=== PATIENT | male | born 1975 | race Caucasian/White ===

== ENCOUNTER 2016-12-31 15:11 | Emergency (ER) | payer MEDICARE ==
[~2016-12-31] VITALS: Ht 188 cm; Wt 113.4 kg
[~2016-12-31 15:11] MED LIST: AMOXICILLIN 50500 MG PO; ATIVAN1 MG PO; AURALGAN OT10 ML/BOT OT; BACTRIM DS 8001 TA1 PO; BACTRIM DS 8001 TAB PO; BENTYL20 MG PO; CIPRO 500MG TA500 MG PO; DILAUDID2 MG PO; FLOMAX 0.4MG C0.4 MG PO; FLOMAX0.4 MG PO; HYDROCODONE/ACE1 TA5 PO; IBUPROFEN200 MG PO; IBUPROFEN800 MG PO; KEFLEX 500MG.500 MG PO; KLONOPIN1 MG PO; LORTAB 5/500 501 TAB PO; LORTAB 500 MG-11 TAB PO; LORTAB 500 MG-71 TAB PO; MOTRIN800 MG PO; NORCO 325 MG-51 TAB PO; OCUFLOX 0.3% OP.5 ML OP; PEN-VK500 MG PO; PERCOCET 5/3251 EACH PO; PHENERGAN 25MG.25 M1 PO; PREDNISONE 20MG20 MG PO; PROZAC 20MG CAP20 MG PO; PYRIDIUM 200MG200 MG PO; RISPERDAL 1 MG T1 MG PO; SEPTRA DS 800 M1 TAB PO; TESSALON PERLE100 MG PO; TYLENOL W/CODEI1 TA2 PO; VIBRAMYCIN 100100 MG PO; VICODIN 5/500 T1 TAB PO; VICODIN 7.5/501 EACH PO; ZITHROMAX Z PA250 MG PO
[2016-12-31] MEDS ORDERED: FLONASE 50 MCG16 GM (16:25)
[2016-12-31] MEDS ORDERED: CLARITIN 10MG T10 MG PO (16:25)
[2016-12-31] MEDS ORDERED: MEDROL 4MG. DOSE4 MG PO (16:25)
--- NOTE | 2016-12-31 16:27 | Urgent Treatment Center Report ---
History of Present Issue Date/Time Seen by Provider 12/31/16 0855 Visit Reason Pt arrived:Walked Presenting Problem:PT STATES SORE THROAT THAT BEGAN YESTERDAY. STATES THIS MORNING THE PAIN WAS WORSE. STATES PAINFUL SWALLOWING AND PAIN TO LEFT SIDE OF NECK AND LEFT EAR. Location if Accident: Onset of symptoms date/time:12/30/16/ or onset unknown for:MEDICAL HX UNKNOWN Have you (or family members/close friends) recently traveled outside the [place]? N If Yes, where/when: Have you had exposure to infectious disease within the past month? TB? Other? Specify: c/o sore throat and ear pain on left side. Started w/ scratchy throat yesterday but ear pain this morning. Worse w/ chewing. Described as constant ache with intermittent pressure, popping, crackling. Slightly decreased hearing. No drainage from ear. Pain radiates from ear down neck and then left side of throat still feels scratchy. Hasn't taken or tried anything for symptoms. no one else w / similiar symptoms. Source patient Exam Limitations no limitations ALLERGIES Coded Allergies: butorphanol (07/03/16) haloperidol (From HALDOL) (07/03/16) hydroxyzine (07/03/16) ketorolac (07/03/16) oxycodone (07/03/16) Home Medications Active Scripts HYDROCODONE/ACETAMINOPHEN ([place] 5-325 Tablet) 1 TAB PO Q6HP PRN pain #10 TAB Prov: 07/03/16 Reported Medications Fluoxetine Hcl (Prozac 20MG Capsule(Generic)) 40 MG PO DAILY Clonazepam (Klonopin 1MG) 1 MG PO TID History Medical History General CAD? No Angina: No [place]: No Hypertension? No Hyperlipidemia? No CHF? No DVT? No PE? No COPD? No Asthma? No Anemia? No GERD? No Gastric ulcers? No GI Bleed? No Hernia? Yes Thyroid Problems? No Hypothyroidism? No CVA? No Seizures? No Diabetes? No Insulin Dependent: No Insulin Pump: No Home FSBS? No Renal Insuffiency? No UTI? Yes Stones? Yes BPH? Yes GB Disease: No Nephritic Syndrome? No Asplenia? No Hepatitis? No Sickle Cell Disease? No Arthritis? No Migraines? No Cataracts? No Glaucoma? No MRSA? No HIV? No TB? No Anxiety? Yes Depression? Yes Cancer? No More? Yes Additional hx: 36 KIDNEY STONES REMOVED Immunization HX DT/Tetanus 1-4 Years Ago Flu NEVER Pneumonia NEVER Surgical Hx Previous Surgery?Y KIDNEY STONES-MULTIPLE Family History Family HX Diabetes Yes CAD Yes Hypertension Yes Hyperlipidemia Yes Cancer Yes TB No Social History Smoking Hx Smoker: Never Smoker Tobacco: No Alcohol Alcohol: No Review of Systems All Other Systems Reviewed and Negative Constitutional denies chills, denies fever, denies malaise, denies weakness Eyes denies drainage ENT see HPI. denies: nose discharge, nose congestion, throat swelling. Respiratory denies cough Skin denies rash Psychiatric/Neurological denies headache, denies other (dizziness) Physical Exam Vital Signs Vital Signs Date Time Temp Pulse Resp B/P Pulse O2 O2 Flow FiO2 Ox Delivery Rate 12/31 1543 98.3 89 20 140/95 98 General Appearance no apparent distress Eye Exam - bilateral eye normal exam Ear, Nose, Throat clear PND and mild cobblestoning, nares normal, bilateral EAC normal and both TMs bulging slightly, intact, pearly gaspar, clear fluid Neck supple, full range of motion, tender left side consistent w/ location of eustachian tube, no lymphadenopathy Respiratory Status No: respiratory distress (no cough). Lung Sounds anterior: lungs clear. posterior: lungs clear. bilateral: lungs clear. Cardiovascular no peripheral edema Neurologic alert Skin normal color, warm/dry Lymphatic no adenopathy (cervical) Medical Decision Making LABS/Meds/Orders Pt receiving controlled substance in ED? No Results/Orders Laboratory Tests 12/31/16 1549: Group A Strep Screen NOT DETECTED Orders Procedure Date/time Status [facility] STREP SCREEN 12/31 1549 Complete Departure Departure Time of Disposition 1622 Disposition [place] Home or Self Care(routine) Clinical Impression Primary Impression: Eustachian tube dysfunction Qualifiers: Laterality: left Qualified Code: H69.82 - Other specified disorders of Eustachian tube, left ear Condition STABLE Referrals Surya FRANCIS,Catracho (Family) Follow up IMMEDIATELY for new or worsening symptoms OR no noticeable improvement over the next 48-72 hours. 911 for difficulty breathing. Patient Instructions DI for Eustachian Tube Dysfunction-Adult, Methylprednisolone Oral Additional Instructions * sleep elevated * flonase 2 sprays each nostril daily but may take 2-3 days to notice improvement with it. * start an antihistamine like claritin, celso, zyrtec * Start steroid today. Helps with inflammation therefore, should help improve your symptoms. Follow directions on package. Rvwd side effects. Pt reports they have taken them before. Discharge Counseling Counseled pt/family regarding diagnosis, test results, medications/RX, home care, follow up needs Prescriptions Current Visit Scripts Fluticasone Propionate (Flonase 50 Mcg Nasal [place]) 2 SPRAY NA DAILY #1 BOT Loratadine (Claritin 10MG) 10 MG PO DAILY #1 TAB OTC medication Methylprednisolone (Medrol Dose Mike) 4 MG PO UD #1 MIKE TAKE DIRECTED ON PACKAGING at 1637
--- NOTE | 2016-12-31 16:27 | Urgent Treatment Center Report ---
History of Present Issue Date/Time Seen by Provider 12/31/16 2095 Visit Reason Pt arrived:Walked Presenting Problem:PT STATES SORE THROAT THAT BEGAN YESTERDAY. STATES THIS MORNING THE PAIN WAS WORSE. STATES PAINFUL SWALLOWING AND PAIN TO LEFT SIDE OF NECK AND LEFT EAR. Location if Accident: Onset of symptoms date/time:12/30/16/ or onset unknown for:MEDICAL HX UNKNOWN Have you (or family members/close friends) recently traveled outside the [place]? N If Yes, where/when: Have you had exposure to infectious disease within the past month? TB? Other? Specify: c/o sore throat and ear pain on left side. Started w/ scratchy throat yesterday but ear pain this morning. Worse w/ chewing. Described as constant ache with intermittent pressure, popping, crackling. Slightly decreased hearing. No drainage from ear. Pain radiates from ear down neck and then left side of throat still feels scratchy. Hasn't taken or tried anything for symptoms. no one else w / similiar symptoms. Source patient Exam Limitations no limitations ALLERGIES Coded Allergies: butorphanol (07/03/16) haloperidol (From HALDOL) (07/03/16) hydroxyzine (07/03/16) ketorolac (07/03/16) oxycodone (07/03/16) Home Medications Active Scripts HYDROCODONE/ACETAMINOPHEN ([place] 5-325 Tablet) 1 TAB PO Q6HP PRN pain #10 TAB Prov: 07/03/16 Reported Medications Fluoxetine Hcl (Prozac 20MG Capsule(Generic)) 40 MG PO DAILY Clonazepam (Klonopin 1MG) 1 MG PO TID History Medical History General CAD? No Angina: No [place]: No Hypertension? No Hyperlipidemia? No CHF? No DVT? No PE? No COPD? No Asthma? No Anemia? No GERD? No Gastric ulcers? No GI Bleed? No Hernia? Yes Thyroid Problems? No Hypothyroidism? No CVA? No Seizures? No Diabetes? No Insulin Dependent: No Insulin Pump: No Home FSBS? No Renal Insuffiency? No UTI? Yes Stones? Yes BPH? Yes GB Disease: No Nephritic Syndrome? No Asplenia? No Hepatitis? No Sickle Cell Disease? No Arthritis? No Migraines? No Cataracts? No Glaucoma? No MRSA? No HIV? No TB? No Anxiety? Yes Depression? Yes Cancer? No More? Yes Additional hx: 36 KIDNEY STONES REMOVED Immunization HX DT/Tetanus 1-4 Years Ago Flu NEVER Pneumonia NEVER Surgical Hx Previous Surgery?Y KIDNEY STONES-MULTIPLE Family History Family HX Diabetes Yes CAD Yes Hypertension Yes Hyperlipidemia Yes Cancer Yes TB No Social History Smoking Hx Smoker: Never Smoker Tobacco: No Alcohol Alcohol: No Review of Systems All Other Systems Reviewed and Negative Constitutional denies chills, denies fever, denies malaise, denies weakness Eyes denies drainage ENT see HPI. denies: nose discharge, nose congestion, throat swelling. Respiratory denies cough Skin denies rash Psychiatric/Neurological denies headache, denies other (dizziness) Physical Exam Vital Signs Vital Signs Date Time Temp Pulse Resp B/P Pulse O2 O2 Flow FiO2 Ox Delivery Rate 12/31 1543 98.3 89 20 140/95 98 General Appearance no apparent distress Eye Exam - bilateral eye normal exam Ear, Nose, Throat clear PND and mild cobblestoning, nares normal, bilateral EAC normal and both TMs bulging slightly, intact, pearly gaspar, clear fluid Neck supple, full range of motion, tender left side consistent w/ location of eustachian tube, no lymphadenopathy Respiratory Status No: respiratory distress (no cough). Lung Sounds anterior: lungs clear. posterior: lungs clear. bilateral: lungs clear. Cardiovascular no peripheral edema Neurologic alert Skin normal color, warm/dry Lymphatic no adenopathy (cervical) Medical Decision Making LABS/Meds/Orders Pt receiving controlled substance in ED? No Results/Orders Laboratory Tests 12/31/16 1549: Group A Strep Screen NOT DETECTED Orders Procedure Date/time Status [facility] STREP SCREEN 12/31 1549 Complete Departure Departure Time of Disposition 1622 Disposition [place] Home or Self Care(routine) Clinical Impression Primary Impression: Eustachian tube dysfunction Qualifiers: Laterality: left Qualified Code: H69.82 - Other specified disorders of Eustachian tube, left ear Condition STABLE Referrals Surya FRANCIS,Catracho (Family) Follow up IMMEDIATELY for new or worsening symptoms OR no noticeable improvement over the next 48-72 hours. 911 for difficulty breathing. Patient Instructions DI for Eustachian Tube Dysfunction-Adult, Methylprednisolone Oral Additional Instructions * sleep elevated * flonase 2 sprays each nostril daily but may take 2-3 days to notice improvement with it. * start an antihistamine like claritin, celso, zyrtec * Start steroid today. Helps with inflammation therefore, should help improve your symptoms. Follow directions on package. Rvwd side effects. Pt reports they have taken them before. Discharge Counseling Counseled pt/family regarding diagnosis, test results, medications/RX, home care, follow up needs Prescriptions Current Visit Scripts Fluticasone Propionate (Flonase 50 Mcg Nasal [place]) 2 SPRAY NA DAILY #1 BOT Loratadine (Claritin 10MG) 10 MG PO DAILY #1 TAB OTC medication Methylprednisolone (Medrol Dose Mike) 4 MG PO UD #1 MIKE TAKE DIRECTED ON PACKAGING at 1630
[2016-12-31 16:29] VITALS: BP 140/95
== END 2016-12-31 16:29 | disposition home or self-care (01) ==
LOC: UTC 15:11
DX: H69.82 Other specified disorders of Eustachian tube, left ear (principal)

== ENCOUNTER 2017-01-02 06:19 | Emergency (ER) | payer MEDICARE ==
[~2017-01-02] VITALS: Ht 188 cm; Wt 113.4 kg
[~2017-01-02 06:19] MED LIST changes: +CLARITIN 10MG T10 MG PO; +FLONASE 50 MCG16 GM; +MEDROL 4MG. DOSE4 MG PO
--- NOTE | 2017-01-02 06:32 | Emergency Room Report ---
History of Present Illness Time Seen by 0620 Presenting Problem in Triage Pt arrived:Walked Presenting Problem:PT C/O LEFT EAR PAIN X 3 DAYS. PT RPTS HE WAS SEEN IN THE [facility] ON TUESDAY, IS TAKING MEDICATIONS PRESCRIBED BUT PAIN IS NOT SUBSIDING. 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 N Clinical Suspician of Infection? N Mental Status: 1 - Regular (Normal Baseline) Sepsis Risk:Possible Sepsis Risk Have you (or family members/close friends) recently traveled outside the [place]? N If Yes, where/when: Have you had exposure to infectious disease within the past month? N TB? Other? Specify: Comment Patient complains of left ear discomfort. It started 3 days ago with a popping sensation in his left ear which increased with swallowing. He was seen in the urgent treatment center and diagnosed with eustachian tube dysfunction. He was started on steroids and antihistamines. He says now he has a throbbing pain in his ear. He has had a low-grade fever of about 100 degrees. He has some slight rhinorrhea. Previous history of occasional ear infections. ALLERGIES Coded Allergies: butorphanol (07/03/16) haloperidol (From HALDOL) (07/03/16) hydroxyzine (07/03/16) ketorolac (07/03/16) oxycodone (07/03/16) Home Medications Active Scripts HYDROCODONE/ACETAMINOPHEN ([place] 5-325 Tablet) 1 TAB PO Q6HP PRN pain #10 TAB Prov: 07/03/16 Fluticasone Propionate (Flonase 50 Mcg Nasal [place]) 2 SPRAY NA DAILY #1 BOT Prov: 12/31/16 Loratadine (Claritin 10MG) 10 MG PO DAILY #1 TAB Prov: 12/31/16 Methylprednisolone (Medrol Dose Mike) 4 MG PO UD #1 MIKE Prov: 12/31/16 Reported Medications Fluoxetine Hcl (Prozac 20MG Capsule(Generic)) 40 MG PO DAILY Clonazepam (Klonopin 1MG) 1 MG PO TID History Medical History General CAD? No Angina: No [place]: No Hypertension? No Hyperlipidemia? No CHF? No DVT? No PE? No COPD? No Asthma? No Anemia? No GERD? No Gastric ulcers? No GI Bleed? No Hernia? Yes Thyroid Problems? No Hypothyroidism? No CVA? No Seizures? No Diabetes? No Insulin Dependent: No Insulin Pump: No Home FSBS? No Renal Insuffiency? No End Stage Renal Disease? No UTI? Yes Stones? Yes BPH? Yes GB Disease: No Nephritic Syndrome? No Asplenia? No Hepatitis? No Sickle Cell Disease? No Arthritis? No Migraines? No Cataracts? No Glaucoma? No MRSA? No HIV? No TB? No Anxiety? Yes Depression? Yes Cancer? No More? Yes Additional hx: 36 KIDNEY STONES REMOVED OCD Immunization Hx DT/Tetanus 1-4 Years Ago Flu NEVER Pneumonia NEVER Surgical Hx Previous Surgery?Y KIDNEY STONES-MULTIPLE Appendectomy Family History Family Hx Diabetes Yes CAD Yes Hypertension Yes Hyperlipidemia Yes Cancer Yes TB No Social History Smoking Hx Smoker: Former Smoker Tobacco: No Alcohol Alcohol: No Review of Systems All Other Systems Reviewed and Negative ENT ear pain, nose discharge. Physical Exam Vital Signs Vital Signs Date Time Temp Pulse Resp B/P Pulse O2 O2 Flow FiO2 Ox Delivery Rate 01/02 629 98.8 01/03 624 98.8 110 20 158/102 99 General Appearance normal appearance Ear, Nose, Throat mild erythema of pharynx without exudates. No edema. Uvula midline., injection of LEFT tympanic membrane along the umbo. Waxy appearance of the LEFT tympanic membrane. Mild erythema of the posterior auditory canal. No exudates or edema of auditory canal. Tenderness with insertion of the otoscope and with manipulation of the tragus. Respiratory Status No: respiratory distress. Cardiovascular regular rate/rhythm Neurologic alert Medical Decision Making LABS/Meds/Orders Pt receiving controlled substance in ED? Yes Graham was queried for this patient? Yes Reference #: [id number] Comment 17 rxs. last 3 rxs for clonazepam. last opiate 40 norco on 09/27/16. Results/Orders Current Medication Orders Sig/Jess Start time Last Medication Dose Route Stop Time Status Admin Acetaminophen/ 1 MIKE ONCE ONE 01/02 645 r Codeine Phosphate PO 01/02 646 Amoxicillin 500 MG ONCE ONE 01/02 645 AC PO 01/02 646 Departure Departure Disposition [place] Home or Self Care(routine) Clinical Impression Primary Impression: Left otitis media Qualifiers: Otitis media type: unspecified Chronicity: unspecified Qualified Code: H66.92 - Otitis media, unspecified, left ear Secondary Impressions: Left otitis externa Qualifiers: Otitis externa type: unspecified type Chronicity: acute Qualified Code: H60.502 - Unspecified acute noninfective otitis externa, left ear Condition STABLE Patient Instructions DI for Otitis Externa, DI for Otitis Media (Middle Ear Infection)-Child Additional Instructions Follow-up with your physician this week for reevaluation. Prescriptions Current Visit Scripts Amoxicillin (Amoxicillin 500MG) 500 MG PO TID #30 CAP ED Critical Care Critical Care No at 0638
--- NOTE | 2017-01-02 06:32 | Emergency Room Report ---
History of Present Illness Time Seen by 0620 Presenting Problem in Triage Pt arrived:Walked Presenting Problem:PT C/O LEFT EAR PAIN X 3 DAYS. PT RPTS HE WAS SEEN IN THE [facility] ON TUESDAY, IS TAKING MEDICATIONS PRESCRIBED BUT PAIN IS NOT SUBSIDING. 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 N Clinical Suspician of Infection? N Mental Status: 1 - Regular (Normal Baseline) Sepsis Risk:Possible Sepsis Risk Have you (or family members/close friends) recently traveled outside the [place]? N If Yes, where/when: Have you had exposure to infectious disease within the past month? N TB? Other? Specify: Comment Patient complains of left ear discomfort. It started 3 days ago with a popping sensation in his left ear which increased with swallowing. He was seen in the urgent treatment center and diagnosed with eustachian tube dysfunction. He was started on steroids and antihistamines. He says now he has a throbbing pain in his ear. He has had a low-grade fever of about 100 degrees. He has some slight rhinorrhea. Previous history of occasional ear infections. ALLERGIES Coded Allergies: butorphanol (07/03/16) haloperidol (From HALDOL) (07/03/16) hydroxyzine (07/03/16) ketorolac (07/03/16) oxycodone (07/03/16) Home Medications Active Scripts HYDROCODONE/ACETAMINOPHEN ([place] 5-325 Tablet) 1 TAB PO Q6HP PRN pain #10 TAB Prov: 07/03/16 Fluticasone Propionate (Flonase 50 Mcg Nasal [place]) 2 SPRAY NA DAILY #1 BOT Prov: 12/31/16 Loratadine (Claritin 10MG) 10 MG PO DAILY #1 TAB Prov: 12/31/16 Methylprednisolone (Medrol Dose Mike) 4 MG PO UD #1 MIKE Prov: 12/31/16 Reported Medications Fluoxetine Hcl (Prozac 20MG Capsule(Generic)) 40 MG PO DAILY Clonazepam (Klonopin 1MG) 1 MG PO TID History Medical History General CAD? No Angina: No [place]: No Hypertension? No Hyperlipidemia? No CHF? No DVT? No PE? No COPD? No Asthma? No Anemia? No GERD? No Gastric ulcers? No GI Bleed? No Hernia? Yes Thyroid Problems? No Hypothyroidism? No CVA? No Seizures? No Diabetes? No Insulin Dependent: No Insulin Pump: No Home FSBS? No Renal Insuffiency? No End Stage Renal Disease? No UTI? Yes Stones? Yes BPH? Yes GB Disease: No Nephritic Syndrome? No Asplenia? No Hepatitis? No Sickle Cell Disease? No Arthritis? No Migraines? No Cataracts? No Glaucoma? No MRSA? No HIV? No TB? No Anxiety? Yes Depression? Yes Cancer? No More? Yes Additional hx: 36 KIDNEY STONES REMOVED OCD Immunization Hx DT/Tetanus 1-4 Years Ago Flu NEVER Pneumonia NEVER Surgical Hx Previous Surgery?Y KIDNEY STONES-MULTIPLE Appendectomy Family History Family Hx Diabetes Yes CAD Yes Hypertension Yes Hyperlipidemia Yes Cancer Yes TB No Social History Smoking Hx Smoker: Former Smoker Tobacco: No Alcohol Alcohol: No Review of Systems All Other Systems Reviewed and Negative ENT ear pain, nose discharge. Physical Exam Vital Signs Vital Signs Date Time Temp Pulse Resp B/P Pulse O2 O2 Flow FiO2 Ox Delivery Rate 01/02 629 98.8 01/03 624 98.8 110 20 158/102 99 General Appearance normal appearance Ear, Nose, Throat mild erythema of pharynx without exudates. No edema. Uvula midline., injection of LEFT tympanic membrane along the umbo. Waxy appearance of the LEFT tympanic membrane. Mild erythema of the posterior auditory canal. No exudates or edema of auditory canal. Tenderness with insertion of the otoscope and with manipulation of the tragus. Respiratory Status No: respiratory distress. Cardiovascular regular rate/rhythm Neurologic alert Medical Decision Making LABS/Meds/Orders Pt receiving controlled substance in ED? Yes Graham was queried for this patient? Yes Reference #: [id number] Comment 17 rxs. last 3 rxs for clonazepam. last opiate 40 norco on 09/27/16. Results/Orders Current Medication Orders Sig/Jess Start time Last Medication Dose Route Stop Time Status Admin Acetaminophen/ 1 MIKE ONCE ONE 01/02 645 r Codeine Phosphate PO 01/02 646 Amoxicillin 500 MG ONCE ONE 01/02 645 AC PO 01/02 646 Departure Departure Disposition DC Home or Self Care(routine) Clinical Impression Primary Impression: Left otitis media Qualifiers: Otitis media type: unspecified Chronicity: unspecified Qualified Code: H66.92 - Otitis media, unspecified, left ear Secondary Impressions: Left otitis externa Qualifiers: Otitis externa type: unspecified type Chronicity: acute Qualified Code: H60.502 - Unspecified acute noninfective otitis externa, left ear Condition STABLE Patient Instructions DI for Otitis Externa, DI for Otitis Media (Middle Ear Infection)-Child Additional Instructions Follow-up with your physician this week for reevaluation. Prescriptions Current Visit Scripts Amoxicillin (Amoxicillin 500MG) 500 MG PO TID #30 CAP ED Critical Care Critical Care No at 0640
[2017-01-02] MEDS ORDERED: AMOXICOT500 MG PO (06:41)
[2017-01-02] MEDS ORDERED: [UNRECOGNIZED DRUG - MIXTURE] OT (06:56)
[2017-01-02 06:57] VITALS: BP 146/94
== END 2017-01-02 06:58 | disposition home or self-care (01) ==
LOC: ER 06:19
DX: H66.92 Otitis media, unspecified, left ear (principal); H60.502 Unspecified acute noninfective otitis externa, left ear

== ENCOUNTER 2017-07-23 06:26 | Emergency (ER) | payer MEDICARE ==
[~2017-07-23] VITALS: Ht 185.4 cm; Wt 113.4 kg
[~2017-07-23 06:26] MED LIST changes: +AMOXICOT500 MG PO; +ZOFRAN ODT4 MG PO; +[UNRECOGNIZED DRUG - MIXTURE] OT
--- OUTSIDE RECORDS SUMMARY | 2017-07-23 06:52 | External Medical Summary Rpt | CCD ---
Author Author , IRVIN BRYAN Address Unknown Phone [email or web address] Care Team Providers Care Drum Attendant Name Role Phone Servando East MD, Unavailable Unavailable Servando RYDER MD, Unavailable Unavailable IVETT Carrington MD, Unavailable Unavailable Jorden DUPONT DO, Unavailable Unavailable MARITZA DUPONT DO Purpose Continuity of Care Document - 12-09-2012 through 2016 Problems Code Diagnosis DOS Provider Status 079.99 079.99 10-31-2013 [place] VIRAL [facility] INFECTION Hospital NOS 300.00 300.00 05-06-2013 [place] ANXIETY [facility] 847.2 847.2 05-06-2013 [place] SPRAIN [facility] LUMBAR Hospital REGION 922.32 922.32 05-06-2013 [place] BUTTOCK [facility] CONTUSION Hospital E849.8 E849.8 05-06-2013 [place] ACCIDENT IN [facility] PLACE [facility] E885.9 E885.9 FALL 05-06-2013 [place] FROM [facility] SLIPPING, Hospital TRIPPING, OR STUMBLING [facility] V13.01 V13.01 05-06-2013 [place] PERSONAL [facility] HISTORY OF Hospital URINARY CALCULI V14.8 V14.8 05-06-2013 [place] HX-DRUG [facility] ALLERGY [facility] Hospital 594.2 594.2 01-23-2013 [place] URETHRAL [facility] CALCULUS Hospital [phone] 01-23-2013 [place] URINARY [facility] OBSTRUCTION Hospital , UNSPECIFIED 592.0 592.0 12-09-2012 [place] CALCULUS OF [facility] KIDNEY Hospital H60.92 UNSPECIFIED OTITIS EXTERNA, LEFT EAR H66.92 OTITIS MEDIA, UNSPECIFIED , LEFT EAR N20.0 CALCULUS OF KIDNEY Allergies, Adverse Reactions, Alerts Type Drug Allergy Adverse Reaction to Substance Substance Reaction Severity Hydroxyzine SWELLING Severe Haloperidol SWELLING Severe Butorphanol SWELLING Severe Droperidol Unknown Unknown Oxycodone Unknown Unknown Ketorolac Unknown Unknown Medications Na ND Rx Da Fi Fi Am Da Di Ph RX Ph St me C No te ll ll ou ys ag ar # ys at rm s nt no ma ic us Or Da si cy ia de te s n re d AC 51 08 0 No ET 07 -1 AM 90 8- Lo IN 16 20 ng OP 19 13 er HE 9H N Ac W/ ti CO ve DE IN E #3 TA K LA [address] 40 -0 AT 97 7- Lo ED 95 20 ng 30 13 er RI 9 NG Ac ER ti S ve IN JE CT IO N HY [address] 40 -0 OM 91 7- Lo OR 31 20 ng PH 23 13 er ON 0 E Ac 2 ti MG ve /M L CA RP UJ CT AR 55 05 0 No OC 39 -0 HL 00 7- Lo OR 07 20 ng PE 71 13 er RA 0 ZI Ac NE ti ve 10 MG /2 ML VL Sa 63 05 0 No li 80 -0 ne 70 7- Lo 10 20 ng Fl 07 13 er us 5 h Ac 10 ti ML ve Sy ri ng e HY [address] 40 -2 OM 91 3- Lo OR 31 20 ng PH 23 13 er ON 0 E Ac 2 ti MG ve /M L CA RP UJ CT Vital Signs 10-31-2013 17:32 Name Value Interpretat Reference Comment ion Range Body 99.3 [degF] Temperature BP 68 mm[Hg] Diastolic BP Systolic 131 mm[Hg] Heart 99 /min Rate/Pulse O2% 99 % Respiratory 20 /min Rate 05-06-2013 22:59 Name Value Interpretat Reference Comment ion Range BP 72 mm[Hg] Diastolic BP Systolic 122 mm[Hg] Heart 82 /min Rate/Pulse O2% 96 % Respiratory 20 /min Rate 01-23-2013 17:38 Name Value Interpretat Reference Comment ion Range Weight 220 [lb_av] Measured Weight 99.792 kg Measured 01-23-2013 15:44 Name Value Interpretat Reference Comment ion Range Body 98.4 [degF] Temperature BP 61 mm[Hg] Diastolic BP Systolic 141 mm[Hg] Heart 97 /min Rate/Pulse O2% 97 % Respiratory 18 /min Rate 01-23-2013 09:19 Name Value Interpretat Reference Comment ion Range BP 96 mm[Hg] Diastolic BP Systolic 140 mm[Hg] Heart 86 /min Rate/Pulse O2% 97 % Respiratory 18 /min Rate 12-09-2012 17:01 Name Value Interpretat Reference Comment ion Range BP 87 mm[Hg] Diastolic BP Systolic 135 mm[Hg] Heart 99 /min Rate/Pulse O2% 97 % Respiratory 16 /min Rate 12-09-2012 16:51 Name Value Interpretat Reference Comment ion Range Body 97.7 [degF] Temperature 12-09-2012 16:24 Name Value Interpretat Reference Comment ion Range BP 96 mm[Hg] Diastolic BP Systolic 140 mm[Hg] Heart 86 /min Rate/Pulse O2% 97 % Respiratory 20 /min Rate Results Labs Lab Lab Date Result Refere Interp Status Commen Order Detail nces retati t Range on Urinalysis dipstick W Reflex Microscopic panel in Urine (03-21-2017 12:00) Bacteri 2+ O complet a 017 ed [Presen 12:00 ce] in Urine sedimen t by Light microsc opy Hyaline OCC NONE complet casts 017 ed [Presen 12:00 ce] in Urine sedimen t by Light microsc opy Mucus 2+ NONE complet [Presen 017 ed ce] in 12:00 Urine sedimen t by Light microsc opy Erythro 10-20 0 complet cytes 017 ed [Presen 12:00 ce] in Urine sedimen t by Light microsc opy Epithel OCC OCC complet ial 017 ed cells.s 12:00 quamous [Presen ce] in Urine sedimen t by Microsc opy high power field Leukocy 3-5 O complet jenise 017 wbc/hpf ed [#/volu 12:00 me] in Urine Urinalysis dipstick W Reflex Microscopic panel in Urine (03-21-2017 12:00) Appeara CLEAR CLEAR complet nce of 017 ed Urine 12:00 Bilirub NEGATIV NEG complet in 017 E ed [Presen 12:00 ce] in Urine by Test strip Erythro 3+ NEG Abnorma complet cytes 017 l ed [Presen 12:00 ce] in Urine Color YELLOW YELLOW complet of 017 ed Urine 12:00 Ketones NEGATIV NEG complet 017 E ed [Presen 12:00 ce] in Urine by Automat ed test strip Mucus NEGATIV NEG complet [Presen 017 E ed ce] in 12:00 Urine sedimen t by Light microsc opy Nitrite NEGATIV NEG complet 017 E ed [Presen 12:00 ce] in Urine by Test strip Urobili 2 0.2 NEG complet nogen 017 ed [Presen 12:00 ce] in Urine by Test strip STREP SCREEN (RAPID) (10-31-2013 17:00) STREP NEGATIV complet SCREEN 014 E ed (RAPID) 17:00 URINALYSIS/COMPLETE (01-23-2013 08:58) URINE 01-23-2 YELLOW YELLOW complet COLOR 013 ed 08:58 URINE 01-23-2 SL CLEAR complet APPEARA 013 CLOUDY ed NCE 08:58 URINE 01-23-2 NEGATIV NEG complet GLUCOSE 013 E ed - 08:58 DIPSTIC K URINE 01-23-2 NEGATIV NEG complet BILIRUB 013 E ed IN - 08:58 DIPSTIC K URINE 01-23-2 NEGATIV NEG complet KETONE 013 E mg/dL ed 08:58 URINE 01-23-2 Greater 1.005-1 complet SPECIFI 013 than .030 ed C 08:58 or GRAVITY equal to 1.030 URINE 07-2 3+ NEG complet BLOOD 013 ed 08:58 URINE 07-2 6.0 UNK 5.0-8.5 complet PH 013 ed 08:58 URINE -07-2 1+ NEG complet PROTEIN 013 mg/dL ed - 08:58 DIPSTIC K URINE 05-07-2 0.2 NEG complet UROBILI 013 E.U./dL ed NOGEN - 08:58 DIPSTIC K URINE 05-07-2 NEGATIV NEG complet NITRATE 013 E ed - 08:58 DIPSTIC K URINE 05-07-2 TRACE NEG complet LEUK 013 ed ESTERAS 08:58 E URINE 01-23-2 OCC O complet WBC 013 wbc/hpf ed 08:58 URINE 05-07-2 TRACE O complet BACTERI 013 ed A 08:58 URINE 05-07-2 1+ NONE complet MUCUS 013 ed 08:58 URINALYSIS/COMPLETE (12-09-2012 15:45) URINE 03-23-2 DARK YELLOW complet COLOR 013 BROWN ed 15:45 URINE 03-23-2 Cloudy CLEAR complet APPEARA 013 ed NCE 15:45 URINE 03-23-2 NEGATIV NEG complet GLUCOSE 013 E ed - 15:45 DIPSTIC K URINE 03-23-2 1+ NEG complet BILIRUB 013 ed IN - 15:45 DIPSTIC K URINE 03-23-2 NEGATIV NEG complet KETONE 013 E mg/dL ed 15:45 URINE 03-23-2 Greater 1.005-1 complet SPECIFI 013 than .030 ed C 15:45 or GRAVITY equal to 1.030 URINE 03-23-2 3+ NEG complet BLOOD 013 ed 15:45 URINE 03-23-2 5.5 UNK 5.0-8.5 complet PH 013 ed 15:45 URINE 03-23-2 2+ NEG complet PROTEIN 013 mg/dL ed - 15:45 DIPSTIC K URINE 03-23-2 1.0 NEG complet UROBILI 013 E.U./dL ed NOGEN - 15:45 DIPSTIC K URINE 03-23-2 POSITIV NEG complet NITRATE 013 E ed - 15:45 DIPSTIC K URINE 03-23-2 TRACE NEG complet LEUK 013 ed ESTERAS 15:45 E URINE 03-23-2 TNTC 0 complet RBC 013 rbc/hpf ed 15:45 URINE 03-23-2 10-20 O complet WBC 013 wbc/hpf ed 15:45 URINE 03-23-2 3-5 OCC complet SQUAMOU 013 #/hpf ed S CELLS 15:45 URINE 03-23-2 1+ O complet BACTERI 013 ed A 15:45 Encounters Encounter Start End Date Code Location Performer Type Date Emergency THALIA DUPONT DO (ER) 4 17:11 4 17:33 [facility] Emergency THALIA Carrington MD (ER) 3 22:26 3 23:00 [facility] Emergency THALIA RYDER (ER) 3 09:02 3 15:59 [facility] Emergency THALIA East MD (ER) 3 16:01 3 17:[address] [facility]
--- OUTSIDE RECORDS SUMMARY | 2017-07-23 06:52 | External Medical Summary Rpt | CCD ---
Demographics Preferred Language Icelandic Marital Status Unknown Restoration Affiliation Unknown Race Unknown Ethnic Group Unknown Author Author , IRVIN BRYAN Address Unknown Phone Immunization Unable to retrieve immunization data due to connection failure with Immunization Registry. Please try again later.
--- OUTSIDE RECORDS SUMMARY | 2017-07-23 06:52 | External Medical Summary Rpt | CCD ---
Author Author , IRVIN BRYAN Address Unknown Phone [email or web address] Care Team Providers Care Financial Analyst Accountant Name Role Phone Servando East MD, Unavailable Unavailable Servando RYDER MD, Unavailable Unavailable IVETT Carrington MD, Unavailable Unavailable Jorden DUPONT DO, Unavailable Unavailable MARTIZA DUPONT DO Purpose Continuity of Care Document - 12-09-2012 through 2016 Problems Code Diagnosis DOS Provider Status 079.99 079.99 10-31-2013 [place] VIRAL [facility] INFECTION Hospital NOS 300.00 300.00 05-06-2013 [place] ANXIETY [facility] Hospital 847.2 847.2 05-06-2013 [place] SPRAIN [facility] LUMBAR Hospital REGION 922.32 922.32 05-06-2013 [place] BUTTOCK [facility] CONTUSION Hospital E849.8 E849.8 05-06-2013 [place] ACCIDENT IN [facility] PLACE [facility] E885.9 E885.9 FALL 05-06-2013 [place] FROM [facility] SLIPPING, Hospital TRIPPING, OR STUMBLING [facility] V13.01 V13.01 05-06-2013 [place] PERSONAL [facility] HISTORY OF Hospital URINARY CALCULI V14.8 V14.8 05-06-2013 [place] HX-DRUG [facility] ALLERGY [facility] Hospital 594.2 594.2 01-23-2013 [place] URETHRAL [facility] CALCULUS Hospital 599.60 599.60 01-23-2013 [place] URINARY [facility] OBSTRUCTION Hospital , UNSPECIFIED 592.0 592.0 12-09-2012 [place] CALCULUS OF [facility] KIDNEY Hospital H60.92 UNSPECIFIED OTITIS EXTERNA, LEFT [...] ve /M L CA RP UJ CT NE 55 05 0 No OC 39 -0 [...] DUPONT DO (ER) 4 17:11 4 17:33 [facility] Emergency THALIA Carrington MD (ER) 3 22:26 3 23:00 [facility] Emergency THALIA RYDER (ER) 3 09:02 3 15:59 [facility] Emergency THALIA East MD (ER) 3 16:01 3 17:16 [facility]
--- OUTSIDE RECORDS SUMMARY | 2017-07-23 06:52 | External Medical Summary Rpt | CCD ---
Demographics Preferred Language Chadian Marital Status Unknown Mu-Ism Affiliation Unknown Race Unknown Ethnic Group Unknown Author Author , IRVIN BRYAN Address Unknown Phone Immunization Unable to retrieve immunization data due to connection failure with Immunization Registry. Please try again later.
--- OUTSIDE RECORDS SUMMARY | 2017-07-23 06:53 | External Medical Summary Rpt ---
Author Author IRVIN New, [employer] Organization [employer] Address Unknown Phone Unavailable Results Basic metabolic panel in Blood Observa Value Referen Units Interpr Notes Date tion ce etation Range Urea 7 - 18 mg/dL Normal No Mar 21 nitrogen informati 2016 [Mass/vol on in 12:04 PM ume] in source Serum or data Plasma Calcium 8.5 - mg/dL Normal No Mar 21 [Mass/vol 10.1 informati 2016 ume] in on in 12:04 PM Serum or source Plasma data Chloride 98 - 107 mmoL/L Normal No Mar 21 [Moles/vo informati 2016 lume] in on in 12:04 PM Serum or source Plasma data Carbon 21.0 - mmoL/L Normal No Mar 21 dioxide, 32.0 informati 2016 total on in 12:04 PM [Moles/vo source lume] in data Serum or Plasma Creatinin 0.70 - mg/dL Normal No Mar 21 e 1.30 informati 2016 [Mass/vol on in 12:04 PM ume] in source Serum or data Plasma Creatinin 50 - 200 ML/MIN Normal No Mar 21 e renal informati 2017 clearance on in 12:04 PM source predicted data by Cockcroft -Gault formula Estimated >60 ML/MIN No REFERENCE Mar 21 informati RANGE: 2017 glomerula on in >60 12:04 PM r source ML/MIN/1. filtratio data 73 SQUARE n rate METERSIf (GF this patient is -A merican, then multiply theresult by 1.210. Glucose 74 - 106 mg/dL Normal No Mar 21 [Mass/vol informati 2016 ume] in on in 12:04 PM Serum or source Plasma data Potassium 3.5 - 5.1 mmoL/L Normal No Mar 21 informati 2016 [Moles/vo on in 12:04 PM lume] in source Serum or data Plasma Sodium 136 - 145 mmoL/L Normal No Mar 21 [Moles/vo informati 2016 lume] in on in 12:04 PM Serum or source Plasma data CBC W Auto Differential panel in Blood Observa Value Referen Units Interpr Notes Date tion ce etation Range Basophils 0 - 0.2 K/MM3 Normal No Mar 21 inform2016 [#/volume on in 12:04 PM ] in source Blood by data Automated count Basophils 0.1 - 2.0 % Normal No Mar 21 /100 inform2016 leukocyte on in 12:04 PM s in source Blood by data Automated count Eosinophi 0.0 - 0.4 K/mm3 Normal No Mar 21 ls ati 2016 [#/volume on in 12:04 PM ] in source Blood by data Automated count Eosinophi 0.1 - % Normal No Mar 21 ls/100 12.0 inform2016 leukocyte on in 12:04 PM s in source Blood by data Automated count Granulocy 1.3 - 8.0 K/mm3 Normal No Mar 21 jenise 2016 [#/volume on in 12:04 PM ] in source Blood by data Automated count Granulocy 37.0 - % Normal No Mar 21 jenise/100 80.0 2016 leukocyte on in 12:04 PM s in source Blood by data Automated count Hematocri 42.0 - % Normal No Mar 21 t [Volume 52.0 ati 2016 on in 12:04 PM Fraction] source of Blood data Hemoglobi 14.1 - g/dL Normal No Mar 21 n 18.0 inform2016 [Mass/vol on in 12:04 PM ume] in source Blood data Lymphocyt 0.7 - 4.5 K/mm3 Normal No Mar 21 es 2016 [#/volume on in 12:04 PM ] in source Unspecifi data ed specimen by Automated count Lymphocyt 10 - 50 % Normal No Mar 21 es 2016 [#/volume on in 12:04 PM ] in source Unspecifi data ed specimen by Automated count Erythrocy 27 - 31.2 pg Normal No Mar 21 te mean 2016 corpuscul on in 12:04 PM ar source hemoglobi data n [Entitic mass] Erythrocy 31.8 - g/dl Normal No Mar 21 te mean 35.4 2016 corpuscul on in 12:04 PM ar source hemoglobi data n concentra tion [Mass/vol ume] by Automated count Erythrocy 82.2 - fl Normal No Mar 21 te mean 97.8 2016 corpuscul on in 12:04 PM ar volume source [Entitic data volume] by Automated count Monocytes 0.1 - 1.0 K/mm3 Normal No Mar [id number] [#/volume on in 12:04 PM ] in source Blood by data Automated count Monocytes 1.7 - 9.3 % Normal No Mar 3 /100 2016 leukocyte on in 12:04 PM s in source Blood by data Automated count Platelet 7.4 - fl Low No Mar 21 mean 10.4 2016 volume on in 12:04 PM [Entitic source volume] data in Blood by Automated count Platelets 142 - 424 K/mm3 Normal No Mar 21 inform2016 [#/volume on in 12:04 PM ] in source Blood data Erythrocy 4.6 - 6.2 M/mm3 Normal No Mar 21 jenise 2016 [#/volume on in 12:04 PM ] in source Amniotic data fluid Erythrocy 11.5 - % Normal No Mar 21 te 17.5 2016 distribut on in 12:04 PM ion width source [Entitic data volume] by Automated count Leukocyte 4.8 - K/MM3 Normal No Mar 21 s 10.8 2016 [#/volume on in 12:04 PM ] in source Blood data Urinalysis dipstick W Reflex Microscopic panel in Urine Observa Value Referen Units Interpr Notes Date tion ce etation Range Appeara CLEAR CLEAR No No No Mar 21 nce of informa informa informa 2016 Urine tion in tion in tion in 12:00 source source source PM data data data Bacteri 2+ O No No No Mar 21 a informa informa informa 2016 [Presen tion in tion in tion in 12:00 ce] in source source source PM Urine data data data sedimen t by Light microsc opy Bilirub NEGATIV NEG No No No Mar 21 in E informa informa informa 2016 [Presen tion in tion in tion in 12:00 ce] in source source source PM Urine data data data by Test strip Erythro 3+ NEG No Abnorma No Mar 21 cytes informa l informa 2016 [Presen tion in tion in 12:00 ce] in source source PM Urine data data Color YELLOW YELLOW No No No Mar 21 of informa informa informa 2016 Urine tion in tion in tion in 12:00 source source source PM data data data Glucose NEG No No No Mar 3 [Mass/vol informati informati informati 2017 ume] in on in on in on in 12:00 PM Urine by source source source Test data data data strip Hyaline OCC NONE #/lpf No No Mar 21 casts informa informa 2017 [Presen tion in tion in 12:00 ce] in source source PM Urine data data sedimen t by Light microsc opy Ketones NEGATIV NEG mg/dL No No Mar 21 E informa informa 2016 [Presen tion in tion in 12:00 ce] in source source PM Urine data data by Automat ed test strip Mucus NEGATIV NEG No No No Mar 21 [Presen E informa informa informa 2016 ce] in tion in tion in tion in 12:00 Urine source source source PM sedimen data data data t by Light microsc opy Mucus 2+ NONE No No No Mar 21 [Presen informa informa informa 2016 ce] in tion in tion in tion in 12:00 Urine source source source PM sedimen data data data t by Light microsc opy Nitrite NEGATIV NEG No No No Mar 21 E informa informa informa 2016 [Presen tion in tion in tion in 12:00 ce] in source source source PM Urine data data data by Test strip pH of 5.0 - 8.5 No Normal No Mar 21 Urine informati informati 2017 on in on in 12:00 PM source source data data Protein NEG mg/dL High No Mar 21 [Mass/vol informati 2016 ume] in on in 12:00 PM Urine by source Automated data test strip Erythro 10-20 0 rbc/hpf No No Mar 21 cytes informa informa 2016 [Presen tion in tion in 12:00 ce] in source source PM Urine data data sedimen t by Light microsc opy Specific 1.005 - No Normal No Mar 21 gravity 1.030 informati informati 2017 of Urine on in on in 12:00 PM source source data data Epithel OCC OCC #/hpf No No Mar 21 ial informa informa 2017 cells.s tion in tion in 12:00 quamous source source PM data data [Presen ce] in Urine sedimen t by Microsc opy high power field Urobili 0.2 NEG E.U./dL No No Mar 21 nogen informa informa 2016 [Presen tion in tion in 12:00 ce] in source source PM Urine data data by Test strip Leukocy [3 O wbc/hpf No No Mar 21 jenise wbc/hpf informa informa 2016 [#/volu ; 5 tion in tion in 12:00 me] in wbc/hpf source source PM Urine ] data data Urinalysis dipstick W Reflex Microscopic panel in Urine Observa Value Referen Units Interpr Notes Date tion ce etation Range Appeara CLEAR CLEAR No No No Mar 21 nce of informa informa informa 2016 Urine tion in tion in tion in 12:00 source source source PM data data data Bilirub NEGATIV NEG No No No Mar 21 in E informa informa informa 2016 [Presen tion in tion in tion in 12:00 ce] in source source source PM Urine data data data by Test strip Erythro 3+ NEG No Abnorma No Mar 21 cytes informa l informa 2016 [Presen tion in tion in 12:00 ce] in source source PM Urine data data Color YELLOW YELLOW No No No Mar 21 of informa informa informa 2016 Urine tion in tion in tion in 12:00 source source source PM data data data Glucose NEG No No No Mar 21 [Mass/vol informati informati informati 2016 ume] in on in on in on in 12:00 PM Urine by source source source Test data data data strip Ketones NEGATIV NEG mg/dL No No Mar 21 E informa informa 2016 [Presen tion in tion in 12:00 ce] in source source PM Urine data data by Automat ed test strip Mucus NEGATIV NEG No No No Mar 21 [Presen E informa informa informa 2016 ce] in tion in tion in tion in 12:00 Urine source source source PM sedimen data data data t by Light microsc opy Nitrite NEGATIV NEG No No No Mar 21 E informa informa informa 2016 [Presen tion in tion in tion in 12:00 ce] in source source source PM Urine data data data by Test strip pH of 5.0 - 8.5 No Normal No Mar 21 Urine informati informati 2017 on in on in 12:00 PM source source data data Protein NEG mg/dL High No Mar 21 [Mass/vol informati 2017 ume] in on in 12:00 PM Urine by source Automated data test strip Specific 1.005 - No Normal No Mar 21 gravity 1.030 informati informati 2016 of Urine on in on in 12:00 PM source source data data Urobili 0.2 NEG E.U./dL No No Mar 21 nogen informa informa 2017 [Presen tion in tion in 12:00 ce] in source source PM Urine data data by Test strip
[2017-07-23 06:54] LABS: URINE BILIRUBIN - DIPSTICK NEGATIVE (NEG); URINE BLOOD NEGATIVE (NEG)
--- NOTE | 2017-07-23 07:42 | Emergency Room Report ---
History of Present Illness Time Seen by 06Danni Presenting Problem in Triage Pt arrived:Walked Presenting Problem:PT STATES HE WOKE UP AT 0330 WITH FEVER AND CHILLS, AND ACHING ALL OVER. STATES HE PASSED A KIDNEY STONE YESTERDAY, SAYS HE STILL HAVING PAIN IN BACK, SORE THROAT, BILATERAL EARACHES Onset of symptoms date/time:07/23/1701/03/330 or onset unknown for: Treatment Prior to Arrival: [employer] Provided by: Sepsis Risk Assessment: Temp: 98.8 B/P: 123/86 MAP: 98 Pulse: 103 Resp: 20 Recent fever? N Clinical Suspician of Infection? N Mental Status: 1 - Regular (Normal Baseline) Sepsis Risk:Possible Sepsis Risk Have you (or family members/close friends) recently traveled outside the [place]? N If Yes, where/when: Have you had exposure to infectious disease within the past month? N TB? Other? Specify: Source patient, RN notes reviewed, old records Exam Limitations no limitations Comment fever and body aches with chills over the last 24 hrs - no cough or rash and no urinary sx except recent passed stone Cardiac Chest Pain Chest pain indicative of cardiac No Timing/Duration this evening Severity moderate ALLERGIES Coded Allergies: butorphanol (03/21/17) haloperidol (From HALDOL) (03/21/17) hydroxyzine (03/21/17) ketorolac (03/21/17) oxycodone (03/21/17) Home Medications Active Scripts HYDROCODONE/ACETAMINOPHEN ([place] 5-325 Tablet) 1 TAB PO Q6HP PRN pain #10 TAB Prov: 07/03/16 Ondansetron (Zofran 4MG Odt) 4 MG PO Q6HP PRN NAUSEA AND VOMITING #10 ODT Prov: 03/21/17 Fluticasone Propionate (Flonase 50 Mcg Nasal [place]) 2 SPRAY NA DAILY #1 BOT Prov: 12/31/16 Loratadine (Claritin 10MG) 10 MG PO DAILY #1 TAB Prov: 12/31/16 Reported Medications Fluoxetine Hcl (Prozac 20MG Capsule(Generic)) 40 MG PO DAILY Clonazepam (Klonopin 1MG) 1 MG PO TID History Medical History General CAD? No Angina: No AR: No Hypertension? No Hyperlipidemia? No CHF? No DVT? No PE? No COPD? No Asthma? No Anemia? No GERD? No Gastric ulcers? No GI Bleed? No Hernia? Yes Thyroid Problems? No Hypothyroidism? No CVA? No Seizures? No Diabetes? No Insulin Dependent: No Insulin Pump: No Home FSBS? No Renal Insuffiency? No End Stage Renal Disease? No UTI? Yes Stones? Yes BPH? Yes GB Disease: No Nephritic Syndrome? No Asplenia? No Hepatitis? No Sickle Cell Disease? No Arthritis? No Migraines? No Cataracts? No Glaucoma? No MRSA? No HIV? No TB? No Anxiety? Yes Depression? Yes Cancer? No More? Yes Additional hx: 36 KIDNEY STONES REMOVED OCD Immunization Hx DT/Tetanus 1-4 Years Ago Flu NEVER Pneumonia NEVER Surgical Hx Previous Surgery?Y KIDNEY STONES-MULTIPLE Appendectomy Family History Family Hx Diabetes Yes CAD Yes Hypertension Yes Hyperlipidemia Yes Cancer Yes TB No Social History Smoking Hx Smoker: Never Smoker Tobacco: No Type Cigarettes Alcohol Alcohol: No Drugs none Review of Systems All Other Systems Reviewed and Negative Constitutional see HPI, chills, fever Eyes denies drainage ENT denies: ear discharge, epistaxis, throat pain. Respiratory denies cough, denies shortness of breath, denies wheezing Cardiovascular denies chest pain, denies palpitations, denies syncope Gastrointestinal denies abdominal pain, denies diarrhea, denies vomiting Genitourinary denies: dysuria, frequency, hesitancy, hematuria. Musculoskeletal denies back pain, denies joint pain, denies joint swelling, denies neck pain Skin denies rash Psychiatric/Neurological denies headache, denies seizure Physical Exam Vital Signs Vital Signs Date Time Temp Pulse Resp B/P Pulse O2 O2 Flow FiO2 Ox Delivery Rate 07/23 0635 98.8 103 20 123/86 97 - WBC >12,000 or <4,000 or 10% bands? 2 or more SIRS Criteria Met? B/P:123/86 MAP:98 Creatinine >2.0? UA output<0.5ml/kg/hr for 2 hrs? Platelet count >100,000? Lactate >2.0mmol/1? INR >1.2 or PTT > than 60 sec? Evidence of Organ Dysfunction? Provider documented clinical suspician of infection? N Sepsis Criteria Count: 2 Sepsis Risk: Possible Sepsis Risk General Appearance no apparent distress Eye Exam - bilateral eye PERRL, bilateral eye EOMI Ear, Nose, Throat normal ENT inspection Neck supple Respiratory Status No: respiratory distress. Lung Sounds bilateral: lungs clear. 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 No Results/Orders Laboratory Tests 07/23/17729: Sodium 138, Potassium 3.8, Chloride 106, Carbon Dioxide 21 L, BUN 12, Creatinine 0.9, Estimated Creat Clear 171, Estimated GFR (MDRD) 93, Glucose 95, Calcium 8.8, Total Bilirubin 0.6, AST 24, ALT 42, Alkaline Phosphatase 76, Total Protein 7.1, Albumin 3.7, Globulin 3.4 H, Albumin/Globulin Ratio 1.1, WBC 5.6, RBC 5.37, Hgb 15.3, Hct 44.8, MCV 83.4, RDW 12.3, Plt Count 200, MPV 8.1, Gran % 72.7, Gran # 4.1, Lymphocytes % 12.4, Monocytes % 11.3 H, Eosinophils % 2.2, Basophils % 1.3, Lymphocytes # 0.7, Monocytes # 0.6, Eosinophils # 0.1, Basophils # 0.1, PUBS MCHC 34.1, MCH 28.5 07/23/17 0650: Influenza Type A Ag NOT DETECTED, Influenza Type B Ag NOT DETECTED, Urine Color YELLOW, Urine Appearance CLEAR, Urine pH 6.0, Ur Specific [place] 1.025, Urine Protein NEGATIVE, Urine Ketones NEGATIVE, Urine Blood NEGATIVE, Urine Nitrate NEGATIVE, Urine Bilirubin NEGATIVE, Urine Urobilinogen 0.2, Ur Leukocyte Esterase NEGATIVE, Urine RBC NONE, Urine WBC OCC, Ur Squamous Epith Cells NONE, Urine Bacteria TRACE, Urine Mucus 4+, Urine Glucose NEGATIVE Orders Procedure Date/time Status CULTURE, THROAT 07/23 650 Active STREP SCREEN THROAT 07/23 644 Complete URINALYSIS/COMPLETE 07/23 630 Complete INFLUENZA A&B ANTIGENS 07/23 630 Complete COMPLETE METABOLIC PANEL 07/23 630 Complete CBC WITH AUTO DIFF 11/04 0630 Complete Departure Departure Time of Disposition 0818 Disposition DC Home or Self Care(routine) Clinical Impression Primary Impression: Febrile illness, acute Condition STABLE Referrals Catracho London MD (Family) Patient Instructions DI for Fever (Symptom) -- Adult Additional Instructions fluids and see pcp for follow up Discharge Counseling Counseled pt/family regarding diagnosis, test results, medications/RX, follow up needs Prescriptions Current Visit Scripts CEPHALEXIN (Keflex 500MG Capsule) 500 MG PO Q8H #21 CAP ED Critical Care Critical Care No at 0819
[2017-07-23 08:13] LABS: HEMOGLOBIN 15.3 g/dL (14.1-18.0); LYMPH # 0.7 K/mm3 (0.7-4.5); LYMPH % 12.4 % (10-50)
[2017-07-23] MEDS ORDERED: KEFLEX 500MG.500 MG PO (08:19)
[2017-07-23 08:54] VITALS: BP 118/75
== END 2017-07-23 08:58 | disposition home or self-care (01) ==
LOC: ER 06:26
PROVIDERS: Emergency Medicine
DX: R50.9 Fever, unspecified (principal); F41.8 Other specified anxiety disorders; Z88.8 Allergy status to other drugs, medicaments and biological substances; H92.03 Otalgia, bilateral

== ENCOUNTER 2017-08-22 11:42 | Emergency (ER) | payer MEDICARE ==
[~2017-08-22] VITALS: Ht 185.4 cm; Wt 115.7 kg
--- OUTSIDE RECORDS SUMMARY | 2017-08-22 12:34 | External Medical Summary Rpt | CCD ---
Author Author , IRVIN BRYAN Address Unknown Phone [email or web address] Care Team Providers Care Service Associate Name Role Phone Servando East MD, Unavailable Unavailable Servando RYDER MD, Unavailable Unavailable IVETT Carrington MD, Unavailable Unavailable Jorden DUPONT DO, Unavailable Unavailable MARITZA DUPONT DO Purpose Continuity of Care Document - 12-09-2012 through 2016 Problems Code Diagnosis DOS Provider Status 079.99 079.99 10-31-2013 [place] VIRAL [facility] INFECTION Hospital NOS 300.00 300.00 05-06-2013 [facility] ANXIETY [facility] 847.2 847.2 05-06-2013 [place] SPRAIN [facility] LUMBAR Hospital REGION 922.32 922.32 05-06-2013 [place] BUTTOCK [facility] CONTUSION Hospital E849.8 E849.8 05-06-2013 [facility] ACCIDENT IN [facility] E885.9 E885.9 FALL 05-06-2013 [facility] FROM [facility] SLIPPING, Hospital TRIPPING, OR STUMBLING [employer] [facility] V13.01 V13.01 05-06-2013 [facility] PERSONAL [facility] HISTORY OF Hospital URINARY CALCULI V14.8 V14.8 05-06-2013 [place] HX-DRUG [facility] ALLERGY [facility] Hospital 594.2 594.2 01-23-2013 [employer] URETHRAL [facility] CALCULUS Hospital 599.60 599.60 01-23-2013 [place] URINARY [facility] OBSTRUCTION Hospital , UNSPECIFIED 592.0 592.0 12-09-2012 [place] CALCULUS OF [facility] KIDNEY Hospital H60.92 UNSPECIFIED OTITIS EXTERNA, LEFT EAR H66.92 OTITIS MEDIA, UNSPECIFIED , LEFT EAR N20.0 CALCULUS OF KIDNEY R50.9 FEVER, UNSPECIFIED Allergies, Adverse Reactions, Alerts Type Drug Allergy [...] ve /M L CA RP UJ CT [place] 55 05 0 No OC 39 -0 [...] Order Detail nces retati t Range on Comprehensive metabolic panel (07-23-2017 07:30) Serum = 76 46-116 complet or 017 U/L ed plasma 07:30 alkalin e phospha tase marixa Serum = 3.7 3.4-5.0 complet or 017 gm/dL ed plasma 07:30 albumin measure ment (mas Serum = 1.1 1.1-1.8 complet or 017 ed plasma 07:30 albumin /globul in mass ra Protein = 7.1 6.4-8.2 complet total 017 gm/dL ed ser/tiffany 07:30 s ALT = 42 12-78 complet (SGPT) 017 U/L ed ser/tiffany 07:30 s Serum = 24 15-37 complet or 017 U/L ed plasma 07:30 asparta te aminotr ansfera Serum = 138 136-145 complet sodium 017 mmoL/L ed measure 07:30 ment Serum = 3.8 3.5-5.1 complet potassi 017 mmoL/L ed um 07:30 measure ment Serum = 95 74-106 complet or 017 mg/dL ed plasma 07:30 glucose measure ment (mas Serum = 3.4 1.3-3.2 complet globuli 017 gm/dL ed n 07:30 measure ment (mass/v olume) Estimat = 93 >60 complet ed 017 ML/MIN ed glomeru 07:30 lar filtrat ion rate (GF Comment: REFERENCE RANGE: >60 ML/MIN/1.73 SQUARE METERS Comment: If this patient is -Somali, then multiply the Comment: result by 1.210. Estimat = 171 50-200 complet ion of 017 ML/MIN ed creatin 07:30 ine renal clearan ce Serum = 0.9 0.70-1. complet or 017 mg/dL 30 ed plasma 07:30 creatin ine measure ment ( Carbon = 21 21.0-32 complet dioxide 017 mmoL/L .0 ed 07:30 measure ment Serum = 106 98-107 complet or 017 mmoL/L ed plasma 07:30 chlorid e measure ment (mo Serum = 8.8 8.5-10. complet or 017 mg/dL 1 ed plasma 07:30 calcium measure ment (mas Serum = 12 7-18 complet or 017 mg/dL ed plasma 07:30 urea nitroge n measure men Serum = 0.6 0.2-1.0 complet or 017 mg/dL ed plasma 07:30 total bilirub in measure m CBC w auto diff (07-23-2017 07:30) Blood = 5.6 4.8-10. complet leukocy 017 K/MM3 8 ed jenise 07:30 count (number /volume ) Automat = 12.3 11.5-17 complet ed 017 % .5 ed erythro 07:30 cyte distrib ution width Red = 5.37 4.6-6.2 complet blood 017 M/mm3 ed cell 07:30 count Blood = 200 142-424 complet platele 017 K/mm3 ed t count 07:30 Automat = 8.1 7.4-10. complet ed 017 fl 4 ed blood 07:30 platele t mean volume marixa [place] % = 11.3 1.7-9.3 complet 017 % ed 07:30 Absolut = 0.6 0.1-1.0 complet e 017 K/mm3 ed monocyt 07:30 e count Automat = 83.4 82.2-97 complet ed 017 fl .8 ed erythro 07:30 cyte mean corpusc ular v Automat = 34.1 31.8-35 complet ed 017 g/dl .4 ed erythro 07:30 cyte mean corpusc ular h Mean = 28.5 27-31.2 complet corpusc 017 pg ed ular 07:30 hemoglo bin (MCH) determ Lymphoc = 12.4 10-50 complet yte 017 % ed count, 07:30 blood, automat ed Absolut = 0.7 0.7-4.5 complet e 017 K/mm3 ed lymphoc 07:30 yte count Blood = 15.3 14.1-18 complet hemoglo 017 g/dL .0 ed bin 07:30 measure ment (mass/v olum Blood = 44.8 42.0-52 complet hematoc 017 % .0 ed rit 07:30 (volume fractio n) Granulo = 72.7 37.0-80 complet cyte 017 % .0 ed percent 07:30 age Blood = 4.1 1.3-8.0 complet granulo 017 K/mm3 ed cytes 07:30 automat ed count (numb Automat = 2.2 % 0.1-12. complet ed 017 0 ed blood 07:30 eosinop hils/10 0 leukocy t Automat = 0.1 0.0-0.4 complet ed 017 K/mm3 ed blood 07:30 eosinop hil count Baso % = 1.3 % 0.1-2.0 complet 017 ed 07:30 Automat = 0.1 0-0.2 complet ed 017 K/MM3 ed blood 07:30 basophi l count (count/ vo Influenza A and B virus antigen assay (07-23-2017 06:50) Influen NOT NOT complet za 017 DETECTE DETECTD ed virus B 06:50 D NOT DETECTE antigen D L detecti on Influen NOT NOT complet za A ag 017 DETECTE DETECTD ed QL 06:50 D NOT DETECTE D L Comment: Screening group A Streptococcus antigen (07-23-2017 06:50) Screeni NEGATIV complet ng 017 E ed group A 06:50 NEGATIV E L Strepto coccus antigen Urinalysis with microscopy (07-23-2017 06:50) Urine = NEG complet protein 017 NEGATIV ed 06:50 E mg/dL measure ment by automat ed t Urine = 6.0 5.0-8.5 complet pH 017 ed 06:50 Urine = OCC O complet leukocy 017 wbc/hpf ed jenise 06:50 count (number /volume ) Urine 0.2 0.2 NEG complet urobili 017 L ed nogen 06:50 E.U./dL detecti on by test str [place] NONE OCC complet s 017 NONE L ed epithel 06:50 #/hpf ial cells detecti on in u Urine = 1.025 1.005-1 complet specifi 017 .030 ed c 06:50 gravity measure ment Erythro NONE 0 complet cytes 017 NONE L ed detecti 06:50 rbc/hpf on in urine sedimen t Urine NEGATIV NEG complet nitrite 017 E ed 06:50 NEGATIV detecti E L on by test strip Mucus 4+ 4+ L NONE complet detecti 017 ed on in 06:50 urine sedimen t by lig Mucus NEGATIV NEG complet detecti 017 E ed on in 06:50 NEGATIV urine E L sedimen t by lig Urine NEGATIV NEG complet ketones 017 E ed 06:50 NEGATIV detecti E L on by mg/dL automat ed jenise Glucose = NEG complet ur 017 NEGATIV ed test 06:50 E strip Urine YELLOW YELLOW complet color 017 YELLOW ed 06:50 L Urine NEGATIV NEG complet blood 017 E ed detecti 06:50 NEGATIV on E L Urine NEGATIV NEG complet total 017 E ed bilirub 06:50 NEGATIV in E L detecti on by test Bacteri TRACE O complet a 017 TRACE L ed detecti 06:50 on in urine sedimen t by Urine CLEAR CLEAR complet appeara 017 CLEAR L ed nce 06:50 determi nation Influenza virus A+B Ag [Presence] in Unspecified specimen (07-23-2017 06:50) Influen NOT NOT complet za 017 DETECTE DETECTD ed virus A 06:50 D Ag [Presen ce] in Unspeci fied specime n Influen NOT NOT complet za 017 DETECTE DETECTD ed virus B 06:50 D Ag [Presen ce] in Unspeci fied specime n Streptococcus pyogenes Ag [Presence] in Unspecified specimen (07-23-2017 06:50) Strepto NEGATIV complet coccus 017 E ed pyogene 06:50 s Ag [Presen ce] in Unspeci fied specime n Urinalysis dipstick W Reflex Microscopic panel in Urine (07-23-2017 06:50) Bacteri TRACE O complet a 017 ed [Presen 06:50 ce] in Urine sedimen t by Light microsc opy Mucus 4+ NONE complet [Presen 017 ed ce] in 06:50 Urine sedimen t by Light microsc opy Erythro NONE 0 complet cytes 017 ed [Presen 06:50 ce] in Urine sedimen t by Light microsc opy Epithel NONE OCC complet ial 017 ed cells.s 06:50 quamous [Presen ce] in Urine sedimen t by Microsc opy high power field Urinalysis dipstick W Reflex Microscopic panel in Urine (07-23-2017 06:50) Appeara CLEAR CLEAR complet nce of 017 ed Urine 06:50 Bilirub NEGATIV NEG complet in 017 E ed [Presen 06:50 ce] in Urine by Test strip Erythro NEGATIV NEG complet cytes 017 E ed [Presen 06:50 ce] in Urine Color YELLOW YELLOW complet of 017 ed Urine 06:50 Ketones NEGATIV NEG complet 017 E ed [Presen 06:50 ce] in Urine by Automat ed test strip Mucus NEGATIV NEG complet [Presen 017 E ed ce] in 06:50 Urine sedimen t by Light microsc opy Nitrite NEGATIV NEG complet 017 E ed [Presen 06:50 ce] in Urine by Test strip Urobili 0.2 NEG complet nogen 017 ed [Presen 06:50 ce] in Urine by Test strip Urinalysis dipstick W Reflex Microscopic panel in [...] sedimen t by Light microsc opy Nitrite 03-21-2 NEGATIV NEG complet 017 E ed [Presen 12:00 ce] in Urine by Test strip Urobili 03-21-2 0.2 NEG complet nogen 017 ed [Presen 12:00 ce] in Urine by Test strip STREP SCREEN (RAPID) (10-31-2013 17:00) STREP NEGATIV complet SCREEN 014 E ed (RAPID) 17:00 URINALYSIS/COMPLETE (01-23-2013 08:58) URINE -07-2 YELLOW YELLOW complet COLOR 013 ed 08:58 URINE -07-2 SL CLEAR complet APPEARA 013 CLOUDY ed NCE 08:58 URINE 05--2 NEGATIV NEG complet GLUCOSE 013 E ed - 08:58 DIPSTIC K URINE 05-07-2 NEGATIV NEG complet BILIRUB 013 E ed IN - 08:58 DIPSTIC K URINE 05-07-2 NEGATIV NEG complet KETONE 013 E mg/dL ed 08:58 URINE -07-2 Greater 1.005-1 complet SPECIFI 013 than .030 ed C 08:58 or GRAVITY equal to 1.030 URINE 05-07-2 3+ NEG complet BLOOD 013 ed 08:58 URINE 05-07-2 6.0 UNK 5.0-8.5 complet PH 013 ed 08:58 URINE -07-2 1+ NEG complet PROTEIN 013 mg/dL ed - 08:58 DIPSTIC K URINE 05-07-2 0.2 NEG complet UROBILI 013 E.U./dL ed NOGEN - 08:58 DIPSTIC K URINE 05-07-2 NEGATIV NEG complet NITRATE 013 E ed - 08:58 DIPSTIC K URINE 05-07-2 TRACE NEG complet LEUK 013 ed ESTERAS 08:58 E URINE -07-2 OCC O complet WBC 013 wbc/hpf ed 08:58 URINE -07-2 TRACE O complet BACTERI 013 ed A 08:58 URINE 05-07-2 1+ NONE complet MUCUS 013 ed 08:58 URINALYSIS/COMPLETE (12-09-2012 15:45) URINE 12-09-2 DARK YELLOW complet COLOR 013 BROWN ed 15:45 URINE 12-09-2 Cloudy CLEAR complet APPEARA 013 ed NCE [...] DUPONT DO (ER) 4 17:11 4 17:33 [facility] Emergency THALIA Carrington MD (ER) 3 22:26 3 23:00 [facility] Emergency THALIA RYDER (ER) 3 09:02 3 15:59 [facility] Emergency THALIA East MD (ER) 3 16:01 3 17:16 [facility]
--- OUTSIDE RECORDS SUMMARY | 2017-08-22 12:34 | External Medical Summary Rpt | CCD ---
Author Author , IRVIN BRYAN Address Unknown Phone [email or web address] Care Team Providers Care Analyst Competitive Intelligence Name Role Phone Servando East MD, Unavailable Unavailable Servando RYDER MD, Unavailable Unavailable IVETT Carrington MD, Unavailable Unavailable Jorden DUPONT DO, Unavailable Unavailable MARITZA DUPONT DO Purpose Continuity of Care Document - 12-09-2012 through 2016 Problems Code Diagnosis DOS Provider Status 079.99 079.99 10-31-2013 [place] VIRAL [facility] INFECTION Hospital NOS 300.00 300.00 05-06-2013 [facility] ANXIETY [facility] Hospital 847.2 847.2 05-06-2013 [place] SPRAIN [facility] LUMBAR Hospital REGION 922.32 922.32 05-06-2013 [place] BUTTOCK [facility] CONTUSION Hospital E849.8 E849.8 05-06-2013 [facility] ACCIDENT IN [facility] E885.9 E885.9 FALL 05-06-2013 [facility] FROM [facility] SLIPPING, Hospital TRIPPING, OR STUMBLING [facility] V13.01 V13.01 05-06-2013 [facility] PERSONAL [facility] HISTORY OF Hospital URINARY CALCULI V14.8 V14.8 05-06-2013 [place] HX-DRUG [facility] ALLERGY [facility] Hospital 594.2 594.2 01-23-2013 [facility] URETHRAL [facility] CALCULUS Hospital 599.60 599.60 01-23-2013 [place] URINARY [facility] OBSTRUCTION Hospital , UNSPECIFIED 592.0 592.0 12-09-2012 [place] CALCULUS OF [facility] KIDNEY Hospital H60.92 UNSPECIFIED OTITIS EXTERNA, [...] ve /M L CA RP UJ CT [place] 55 05 0 No OC 39 -0 [...] SQUARE METERS Comment: If this patient is -Maltese, then multiply the Comment: result by 1.210. [...] blood 07:30 platele t mean volume marixa [place] % = 11.3 1.7-9.3 complet 017 % [...] DUPONT DO (ER) 4 17:11 4 17:33 [facility] Emergency THALIA Carrington MD (ER) 3 22:26 3 23:00 [facility] Emergency THALIA RYDER (ER) 3 09:02 3 15:59 [facility] Emergency THALIA East MD (ER) 3 16:01 3 17:16 [facility]
--- OUTSIDE RECORDS SUMMARY | 2017-08-22 12:34 | External Medical Summary Rpt | CCD ---
Demographics Preferred Language Bots[place]an Marital Status Unknown Moravian Affiliation Unknown Race Unknown Ethnic Group Unknown Author Author , IRVIN BRYAN Address Unknown Phone Immunization No patient found.
--- OUTSIDE RECORDS SUMMARY | 2017-08-22 12:34 | External Medical Summary Rpt | CCD ---
Demographics Preferred Language Dutch Marital Status Unknown Church Affiliation Unknown Race Unknown Ethnic Group Unknown Author Author , IRVIN BRYAN Address Unknown Phone Immunization No patient found.
--- OUTSIDE RECORDS SUMMARY | 2017-08-22 12:35 | External Medical Summary Rpt ---
Author Author JANETTCHEMA New, [employer] Organization [employer] Address Unknown Phone Unavailable Results CBC W Auto Differential panel in Blood Observa Value Referen Units Interpr Notes Date tion ce etation Range Basophils 0 - 0.2 K/MM3 Normal No Jul 23 informati 2016 7:30 [#/volume on in AM ] in source Blood by data Automated count Basophils 0.1 - 2.0 % Normal No Jul 23 /100 informati 2017 7:30 leukocyte on in AM s in source Blood by data Automated count Eosinophi 0.0 - 0.4 K/mm3 Normal No Jul 23 ls informati 2017 7:30 [#/volume on in AM ] in source Blood by data Automated count Eosinophi 0.1 - % Normal No Jul 23 ls/100 12.0 informati 2017 7:30 leukocyte on in AM s in source Blood by data Automated count Granulocy 1.3 - 8.0 K/mm3 Normal No Jul 23 jenise informati 2017 7:30 [#/volume on in AM ] in source Blood by data Automated count Granulocy 37.0 - % Normal No Jul 23 jenise/100 80.0 informati 2017 7:30 leukocyte on in AM s in source Blood by data Automated count Hematocri 42.0 - % Normal No Jul 23 t [Volume 52.0 informati 2017 7:30 on in AM Fraction] source of Blood data Hemoglobi 14.1 - g/dL Normal No Jul 23 n 18.0 informati 2017 7:30 [Mass/vol on in AM ume] in source Blood data Lymphocyt 0.7 - 4.5 K/mm3 Normal No Jul 23 es informati 2016 7:30 [#/volume on in AM ] in source Unspecifi data ed specimen by Automated count Lymphocyt 10 - 50 % Normal No Jul 23 es informati 2017 7:30 [#/volume on in AM ] in source Unspecifi data ed specimen by Automated count Erythrocy 27 - 31.2 pg Normal No Jul 23 te mean informati 2016 7:30 corpuscul on in AM ar source hemoglobi data n [Entitic mass] Erythrocy 31.8 - g/dl Normal No Jul 23 te mean 35.4 informati 2016 7:30 corpuscul on in AM ar source hemoglobi data n concentra tion [Mass/vol ume] by Automated count Erythrocy 82.2 - fl Normal No Jul 23 te mean 97.8 informati 2016 7:30 corpuscul on in AM ar volume source [Entitic data volume] by Automated count Monocytes 0.1 - 1.0 K/mm3 Normal No Jul 23 informati 2016 7:30 [#/volume on in AM ] in source Blood by data Automated count Monocytes 1.7 - 9.3 % High No Jul 23 /100 informati 2017 7:30 leukocyte on in AM s in source Blood by data Automated count Platelet 7.4 - fl Normal No Jul 23 mean 10.4 informati 2016 7:30 volume on in AM [Entitic source volume] data in Blood by Automated count Platelets 142 - 424 K/mm3 Normal No Jul 23 informati 2016 7:30 [#/volume on in AM ] in source Blood data Erythrocy 4.6 - 6.2 M/mm3 Normal No Jul 23 jenise informati 2017 7:30 [#/volume on in AM ] in source Amniotic data fluid Erythrocy 11.5 - % Normal No Jul 23 te 17.5 informati 2016 7:30 distribut on in AM ion width source [Entitic data volume] by Automated count Leukocyte 4.8 - K/MM3 Normal No Jul 4 s 10.8 informati 2016 7:30 [#/volume on in AM ] in source Blood data Comprehensive metabolic 2000 panel in Serum or Plasma Observa Value Referen Units Interpr Notes Date tion ce etation Range Albumin/G 1.1 - 1.8 No Normal No Jul 23 lobulin informati informati 2016 7:30 [Mass on in on in AM ratio] in source source Serum or data data Plasma Albumin 3.4 - 5.0 gm/dL Normal No Jul 23 [Mass/vol informati 2016 7:30 ume] in on in AM Serum or source Plasma data Alkaline 46 - 116 U/L Normal No Jul 23 phosphata informati 2016 7:30 se on in AM [Enzymati source c data activity/ volume] in Serum or Plasma Bilirubin 0.2 - 1.0 mg/dL Normal No Jul 23 .total informati 2016 7:30 [Mass/vol on in AM ume] in source Serum or data Plasma Urea 7 - 18 mg/dL Normal No Jul 23 nitrogen informati 2016 7:30 [Mass/vol on in AM ume] in source Serum or data Plasma Calcium 8.5 - mg/dL Normal No Jul 23 [Mass/vol 10.1 informati 2016 7:30 ume] in on in AM Serum or source Plasma data Chloride 98 - 107 mmoL/L Normal No Jul 23 [Moles/vo informati 2016 7:30 lume] in on in AM Serum or source Plasma data Carbon 21.0 - mmoL/L Low No Jul 23 dioxide, 32.0 informati 2017 7:30 total on in AM [Moles/vo source lume] in data Serum or Plasma Creatinin 0.70 - mg/dL Normal No Jul 23 e 1.30 informati 2016 7:30 [Mass/vol on in AM ume] in source Serum or data Plasma Creatinin 50 - 200 ML/MIN Normal No Jul 23 e renal informati 2016 7:30 clearance on in AM source predicted data by Cockcroft -Gault formula Estimated >60 ML/MIN No REFERENCE Jul 23 informati RANGE: 2017 7:30 glomerula on in >60 AM r source ML/MIN/1. filtratio data 73 SQUARE n rate METERSIf (GF this patient is -A merican, then multiply theresult by 1.210. Globulin 1.3 - 3.2 gm/dL High No Jul 23 [Mass/vol informati 2016 7:30 ume] in on in AM Serum source data Glucose 74 - 106 mg/dL Normal No Jul 23 [Mass/vol informati 2016 7:30 ume] in on in AM Serum or source Plasma data Potassium 3.5 - 5.1 mmoL/L Normal No Jul 23 informati 2016 7:30 [Moles/vo on in AM lume] in source Serum or data Plasma Sodium 136 - 145 mmoL/L Normal No Jul 23 [Moles/vo informati 2016 7:30 lume] in on in AM Serum or source Plasma data Aspartate 15 - 37 U/L Normal No Jul 23 informati 2016 7:30 aminotran on in AM sferase source [Enzymati data c activity/ volume] in Serum or Plasma Alanine 12 - 78 U/L Normal No Nov 4 aminotran informati 2017 7:30 sferase on in AM [Enzymati source c data activity/ volume] in Serum or Plasma Protein 6.4 - 8.2 gm/dL Normal No Nov 4 [Mass/vol informati 2017 7:30 ume] in on in AM Serum or source Plasma data Influenza virus A+B Ag [Presence] in Unspecified specimen Observa Value Referen Units Interpr Notes Date tion ce etation Range Influen NOT NOT No No Nov 4 za DETECTE DETECTD informa informa 2017 virus A D tion in tion in 6:50 AM Ag source source [Presen data data ce] in Unspeci fied specime n Influen NOT NOT No No No Nov 4 za DETECTE DETECTD informa informa informa 2017 virus B D tion in tion in tion in 6:50 AM Ag source source source [Presen data data data ce] in Unspeci fied specime n Streptococcus pyogenes Ag [Presence] in Unspecified specimen Observa Value Referen Units Interpr Notes Date tion ce etation Range Strepto NEGATIV No No No No Nov 4 coccus E informa informa informa informa 2017 pyogene tion in tion in tion in tion in 6:50 AM s Ag source source source source [Presen data data data data ce] in Unspeci fied specime n Urinalysis dipstick W Reflex Microscopic panel in Urine Observa Value Referen Units Interpr Notes Date tion ce etation Range Appeara CLEAR CLEAR No No No Nov 4 nce of informa informa informa 2017 Urine tion in tion in tion in 6:50 AM source source source data data data Bacteri TRACE O No No No Nov 4 a informa informa informa 2016 [Presen tion in tion in tion in 6:50 AM ce] in source source source Urine data data data sedimen t by Light microsc opy Bilirub NEGATIV NEG No No No Nov 4 in E informa informa informa 2016 [Presen tion in tion in tion in 6:50 AM ce] in source source source Urine data data data by Test strip Erythro NEGATIV NEG No No No Nov 4 cytes E informa informa informa 2016 [Presen tion in tion in tion in 6:50 AM ce] in source source source Urine data data data Color YELLOW YELLOW No No No Nov 4 of informa informa informa 2017 Urine tion in tion in tion in 6:50 AM source source source data data data Glucose NEG No No No Nov 4 [Mass/vol informati informati informati 2017 6:50 ume] in on in on in on in AM Urine by source source source Test data data data strip Ketones NEGATIV NEG mg/dL No No Nov 4 E informa informa 2017 [Presen tion in tion in 6:50 AM ce] in source source Urine data data by Automat ed test strip Mucus NEGATIV NEG No No No Nov 4 [Presen E informa informa informa 2017 ce] in tion in tion in tion in 6:50 AM Urine source source source sedimen data data data t by Light microsc opy Mucus 4+ NONE No No No Nov 4 [Presen informa informa informa 2017 ce] in tion in tion in tion in 6:50 AM Urine source source source sedimen data data data t by Light microsc opy Nitrite NEGATIV NEG No No No Nov 4 E informa informa informa 2017 [Presen tion in tion in tion in 6:50 AM ce] in source source source Urine data data data by Test strip pH of 5.0 - 8.5 No Normal No Nov 4 Urine informati informati 2017 6:50 on in on in AM source source data data Protein NEG mg/dL No No Nov 4 [Mass/vol informati informati 2017 6:50 ume] in on in on in AM Urine by source source Automated data data test strip Erythro NONE 0 rbc/hpf No No Nov 4 cytes informa informa 2017 [Presen tion in tion in 6:50 AM ce] in source source Urine data data sedimen t by Light microsc opy Specific 1.005 - No Normal No Nov 4 gravity 1.030 informati informati 2017 6:50 of Urine on in on in AM source source data data Epithel NONE OCC #/hpf No No Nov 4 ial informa informa 2017 cells.s tion in tion in 6:50 AM quamous source source data data [Presen ce] in Urine sedimen t by Microsc opy high power field Urobili 0.2 NEG E.U./dL No No Nov 4 nogen informa informa 2016 [Presen tion in tion in 6:50 AM ce] in source source Urine data data by Test strip Leukocyte O wbc/hpf No No Nov 4 s informati informati 2017 6:50 [#/volume on in on in AM ] in source source Urine data data Urinalysis dipstick W Reflex Microscopic panel in Urine Observa Value Referen Units Interpr Notes Date tion ce etation Range Appeara CLEAR CLEAR No No No Nov 4 nce of informa informa informa 2017 Urine tion in tion in tion in 6:50 AM source source source data data data Bilirub NEGATIV NEG No No No Nov 4 in E informa informa informa 2016 [Presen tion in tion in tion in 6:50 AM ce] in source source source Urine data data data by Test strip Erythro NEGATIV NEG No No No Nov 4 cytes E informa informa informa 2016 [Presen tion in tion in tion in 6:50 AM ce] in source source source Urine data data data Color YELLOW YELLOW No No No Nov 4 of informa informa informa 2016 Urine tion in tion in tion in 6:50 AM source source source data data data Glucose NEG No No No Nov 4 [Mass/vol informati informati informati 2016 6:50 ume] in on in on in on in AM Urine by source source source Test data data data strip Ketones NEGATIV NEG mg/dL No No Nov 4 E informa informa 2016 [Presen tion in tion in 6:50 AM ce] in source source Urine data data by Automat ed test strip Mucus NEGATIV NEG No No No Nov 4 [Presen E informa informa informa 2016 ce] in tion in tion in tion in 6:50 AM Urine source source source sedimen data data data t by Light microsc opy Nitrite NEGATIV NEG No No No Nov 4 E informa informa informa 2016 [Presen tion in tion in tion in 6:50 AM ce] in source source source Urine data data data by Test strip pH of 5.0 - 8.5 No Normal No Nov 4 Urine informati informati 2017 6:50 on in on in AM source source data data Protein NEG mg/dL No No Jul 23 [Mass/vol informati informati 2016 6:50 ume] in on in on in AM Urine by source source Automated data data test strip Specific 1.005 - No Normal No Jul 23 gravity 1.030 informati informati 2016 6:50 of Urine on in on in AM source source data data Urobili 0.2 NEG E.U./dL No No Jul 23 nogen informa informa 2016 [Presen tion in tion in 6:50 AM ce] in source source Urine data data by Test strip Basic metabolic panel in Blood Observa Value [...] Normal No Mar 21 e renal informati 2016 clearance on in 12:04 PM source predicted [...] 145 mmoL/L Normal No Mar 21 [Moles/vo 2016 lume] in on in 12:04 PM Serum or source Plasma data CBC W Auto Differential panel in Blood Observa Value Referen Units Interpr Notes Date tion ce etation Range Basophils 0 - 0.2 K/MM3 Normal No Mar [id number] [#/volume on in 12:04 PM ] in source Blood by data Automated count Basophils 0.1 - 2.0 % Normal No Mar 21 /2016 leukocyte on in 12:04 PM s in source Blood by data Automated count Eosinophi 0.0 - 0.4 K/mm3 Normal No Mar 21 ls 2016 [#/volume on in 12:04 PM ] in source Blood by data Automated count Eosinophi 0.1 - % Normal No Mar 21 ls/100 12.0 2016 leukocyte on in 12:04 PM s [...] Normal No Mar 21 t [Volume 52.0 2016 on in 12:04 PM Fraction] source of Blood data Hemoglobi 14.1 - g/dL Normal No Mar 21 n 18.0 2016 [Mass/vol on in 12:04 PM ume] [...] 0.1 - 1.0 K/mm3 Normal No Mar 21 inform2016 [#/volume on in 12:04 PM ] in source Blood by data Automated count Monocytes 1.7 - 9.3 % Normal No Mar 21 /100 2016 leukocyte on in 12:04 PM [...] 6.2 M/mm3 Normal No Mar 21 jenise informati 2016 [#/volume on in 12:04 PM ] [...] No Mar 21 of informa informa informa 2017 Urine tion in tion in tion in 12:00 source source source PM data data data Glucose NEG No No No Mar 21 [Mass/vol informati informati informati 2016 ume] in on in on in on in 12:00 PM Urine by source source source Test data data data strip Hyaline OCC NONE #/lpf No No Mar 21 casts informa informa 2016 [Presen tion in tion [...] Mar 21 nce of informa informa informa 2017 Urine tion in tion in tion in [...] No Mar 21 of informa informa informa 2017 Urine tion in tion in tion in 12:00 source source source PM data data data Glucose NEG No No No Mar 21 [Mass/vol informati informati informati 2017 ume] in [...] 5.0 - 8.5 No Normal No Mar 3 Urine informati informati 2017 on in on [...]
--- NOTE | 2017-08-22 13:57 | RADIOLOGY REPORT PS360 ---
CT HEAD W/O CONTRAST HISTORY: Headache, pain, contusion or hematoma, injury to back of the head pain FALL WITH HEAD AND NECK PAIN ORDERING PHYSICIAN: Jorden Carrington MD PATIENT AGE: 41 years COMPARISON: None TECHNIQUE: Axial images obtained without contrast. Brain and bone windows reviewed. FINDINGS: No midline shift, mass effect, intracranial hemorrhage, hydrocephalus, or extra-axial fluid collection is evident. The calvarium has an unremarkable appearance. No mastoid effusion. The visualized paranasal sinuses are unremarkable. IMPRESSION: Negative CT head without contrast. No acute finding.
--- NOTE | 2017-08-22 14:00 | RADIOLOGY REPORT PS360 ---
CT CERVICAL SPINE W/O CONT INDICATION: Neck pain following injury FALL WITH HEAD AND NECK PAIN ORDERING PHYSICIAN: Jorden Carrington MD PATIENT AGE: 41 years COMPARISON: None TECHNIQUE: Axial images are obtained without contrast. Sagittal and coronal reformatted images are reviewed as well. FINDINGS: There is normal alignment. No fracture or dislocation. No prevertebral soft tissue swelling. The disc spaces are well-preserved. No canal stenosis. Lung apices are clear IMPRESSION: No acute fracture. Negative CT cervical spine
--- NOTE | 2017-08-22 15:01 | Emergency Room Report ---
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 N Clinical Suspician of Infection? N Mental Status: 1 - Regular (Normal Baseline) Sepsis Risk:Low Sepsis Risk Have you (or family members/close friends) recently traveled outside the [place]? N If Yes, where/when: Have you had exposure to infectious disease within the past month? N TB? Other? Specify: Source patient, RN notes reviewed, family, old records Exam Limitations no limitations Comment fell rollar skating yesterday and hit head with neck pain and dec rom- no loc and no abd pain Cardiac Chest Pain Chest pain indicative of cardiac No Timing/Duration this afternoon Severity moderate ALLERGIES Coded Allergies: butorphanol (03/21/17) haloperidol (From HALDOL) (03/21/17) hydroxyzine (03/21/17) ketorolac (03/21/17) oxycodone (03/21/17) Home Medications Active Scripts HYDROCODONE/ACETAMINOPHEN ([place] 5-325 Tablet) 1 TAB PO Q6HP PRN pain #10 TAB Prov: 07/03/16 Fluticasone Propionate (Flonase 50 Mcg Nasal [place]) 2 SPRAY NA DAILY #1 BOT Prov: 12/31/16 Reported Medications Fluoxetine Hcl (Prozac 20MG Capsule(Generic)) 40 MG PO DAILY Clonazepam (Klonopin 1MG) 1 MG PO TID History Medical History General CAD? No Angina: No [place]: No Hypertension? No Hyperlipidemia? No CHF? No DVT? No PE? No COPD? No Asthma? No Anemia? No GERD? No Gastric ulcers? No GI Bleed? No Hernia? Yes Thyroid Problems? No Hypothyroidism? No CVA? No Seizures? No Diabetes? No Insulin Dependent: No Insulin Pump: No Home FSBS? No Renal Insuffiency? No End Stage Renal Disease? No UTI? Yes Stones? Yes BPH? Yes GB Disease: No Nephritic Syndrome? No Asplenia? No Hepatitis? No Sickle Cell Disease? No Arthritis? No Migraines? No Cataracts? No Glaucoma? No MRSA? No HIV? No TB? No Anxiety? Yes Depression? Yes Cancer? No More? Yes Additional hx: 35 KIDNEY STONES REMOVED OCD Immunization Hx DT/Tetanus 1-4 Years Ago Flu NEVER Pneumonia NEVER Surgical Hx Previous Surgery?Y KIDNEY STONES-MULTIPLE Appendectomy Family History Family Hx Diabetes Yes CAD Yes Hypertension Yes Hyperlipidemia Yes Cancer Yes TB No Social History Smoking Hx Smoker: Never Smoker Tobacco: No Alcohol Alcohol: No Drugs none Review of Systems All Other Systems Reviewed and Negative Constitutional denies fever Eyes denies drainage ENT denies: ear discharge, epistaxis, throat pain. Respiratory denies cough Cardiovascular denies chest pain, denies syncope Gastrointestinal denies diarrhea, denies vomiting Genitourinary denies: frequency, hesitancy, hematuria. Musculoskeletal see HPI, denies back pain, denies joint pain, denies joint swelling, neck pain Skin denies rash Psychiatric/Neurological see HPI, headache, denies seizure Physical Exam Vital Signs Vital Signs Date Time Temp Pulse Resp B/P Pulse O2 O2 Flow FiO2 Ox Delivery Rate 08/22 1405 79 16 135/80 98 08/22 1227 98.2 81 16 145/87 98 - WBC >12,000 or <4,000 or 10% bands? 2 or more SIRS Criteria Met? B/P:135/80 MAP:106 Creatinine >2.0? UA output<0.5ml/kg/hr for 2 hrs? Platelet count >100,000? Lactate >2.0mmol/1? INR >1.2 or PTT > than 60 sec? Evidence of Organ Dysfunction? Provider documented clinical suspician of infection? N Sepsis Criteria Count: 0 Sepsis Risk: Low Sepsis Risk General Appearance no apparent distress Eye Exam - bilateral eye PERRL, bilateral eye EOMI Ear, Nose, Throat normal ENT inspection Neck limited range of motion, tender lateral Respiratory Status No: respiratory distress. Lung Sounds bilateral: lungs clear. Cardiovascular regular rate/rhythm Peripheral Pulses Pulses normal Yes Gastrointestinal soft Extremities normal inspection, pelvis stable Strength 4 Upper Ext (L), 4 Upper Ext (R), 4 Lower Ext (L), 4 Lower Ext (R) Neurologic alert, solutions operator II-XII nml as tested, no motor/sensory deficits Glascow Coma Scale Glascow Coma Scale Response Value EYE response: 4 Spontaneously 4 MOTOR response: 6 OBEYS 6 VERBAL response: 5 Oriented & Converses 5 Total 15 Reflexes Reflexes normal Yes Mental status normal mood/affect Skin intact Medical Decision Making LABS/Meds/Orders Pt receiving controlled substance in ED? No Results/Orders Orders Procedure Date/time Status DIET-NOTHING BY MOUTH 08/[address] HEAD REQ 08/[address] SCAN REQUEST 08/22 1231 Complete XRAY/CT/US XRAY/CT/US CT head, C-spine CT interpretation by discussed w/radiologist Time results known: 1504 CT Results no fracture seen Departure Departure Time of Disposition 1501 Disposition DC Home or Self Care(routine) Clinical Impression Primary Impression: Cervical strain, acute Qualifiers: Encounter type: initial encounter Qualified Code: S16.1XXA - Strain of muscle, fascia and tendon at neck level, initial encounter Secondary Impressions: Head contusion Qualifiers: Encounter type: initial encounter Contusion of head detail: unspecified part of head Qualified Code: S00.93XA - Contusion of unspecified part of head, initial encounter Condition STABLE Referrals Catracho London MD (Family) Patient Instructions DI for Cervical Muscle Strain Additional Instructions ice and see pcp and use meds Discharge Counseling Counseled pt/family regarding diagnosis, test results, follow up needs Prescriptions Current Visit Scripts Cyclobenzaprine Hcl (Flexeril) 10 MG PO TID #15 TAB Prednisone (Prednisone 20MG) 20 MG PO BID #10 TAB ED [place] [id number]
--- NOTE | 2017-08-22 15:01 | Emergency Room Report ---
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 N Clinical Suspician of Infection? N Mental Status: 1 - Regular (Normal Baseline) Sepsis Risk:Low Sepsis Risk Have you (or family members/close friends) recently traveled outside the [place]? N If Yes, where/when: Have you had exposure to infectious disease within the past month? N TB? Other? Specify: Source patient, RN notes reviewed, family, old records Exam Limitations no limitations Comment fell rollar skating yesterday and hit head with neck pain and dec rom- no loc and no abd pain Cardiac Chest Pain Chest pain indicative of cardiac No Timing/Duration this afternoon Severity moderate ALLERGIES Coded Allergies: butorphanol (03/21/17) haloperidol (From HALDOL) (03/21/17) hydroxyzine (03/21/17) ketorolac (03/21/17) oxycodone (03/21/17) Home Medications Active Scripts HYDROCODONE/ACETAMINOPHEN ([place] 5-325 Tablet) 1 TAB PO Q6HP PRN pain #10 TAB Prov: 07/03/16 Fluticasone Propionate (Flonase 50 Mcg Nasal [place]) 2 SPRAY NA DAILY #1 BOT Prov: 12/31/16 Reported Medications Fluoxetine Hcl (Prozac 20MG Capsule(Generic)) 40 MG PO DAILY Clonazepam (Klonopin 1MG) 1 MG PO TID History Medical History General CAD? No Angina: No VA: No Hypertension? No Hyperlipidemia? No CHF? No DVT? No PE? No COPD? No Asthma? No Anemia? No GERD? No Gastric ulcers? No GI Bleed? No Hernia? Yes Thyroid Problems? No Hypothyroidism? No CVA? No Seizures? No Diabetes? No Insulin Dependent: No Insulin Pump: No Home FSBS? No Renal Insuffiency? No End Stage Renal Disease? No UTI? Yes Stones? Yes BPH? Yes GB Disease: No Nephritic Syndrome? No Asplenia? No Hepatitis? No Sickle Cell Disease? No Arthritis? No Migraines? No Cataracts? No Glaucoma? No MRSA? No HIV? No TB? No Anxiety? Yes Depression? Yes Cancer? No More? Yes Additional hx: 35 KIDNEY STONES REMOVED OCD Immunization Hx DT/Tetanus 1-4 Years Ago Flu NEVER Pneumonia NEVER Surgical Hx Previous Surgery?Y KIDNEY STONES-MULTIPLE Appendectomy Family History Family Hx Diabetes Yes CAD Yes Hypertension Yes Hyperlipidemia Yes Cancer Yes TB No Social History Smoking Hx Smoker: Never Smoker Tobacco: No Alcohol Alcohol: No Drugs none Review of Systems All Other Systems Reviewed and Negative Constitutional denies fever Eyes denies drainage ENT denies: ear discharge, epistaxis, throat pain. Respiratory denies cough Cardiovascular denies chest pain, denies syncope Gastrointestinal denies diarrhea, denies vomiting Genitourinary denies: frequency, hesitancy, hematuria. Musculoskeletal see HPI, denies back pain, denies joint pain, denies joint swelling, neck pain Skin denies rash Psychiatric/Neurological see HPI, headache, denies seizure Physical Exam Vital Signs Vital Signs Date Time Temp Pulse Resp B/P Pulse O2 O2 Flow FiO2 Ox Delivery Rate 08/22 1405 79 16 135/80 98 08/22 1227 98.2 81 16 145/87 98 - WBC >12,000 or <4,000 or 10% bands? 2 or more SIRS Criteria Met? B/P:135/80 MAP:106 Creatinine >2.0? UA output<0.5ml/kg/hr for 2 hrs? Platelet count >100,000? Lactate >2.0mmol/1? INR >1.2 or PTT > than 60 sec? Evidence of Organ Dysfunction? Provider documented clinical suspician of infection? N Sepsis Criteria Count: 0 Sepsis Risk: Low Sepsis Risk General Appearance no apparent distress Eye Exam - bilateral eye PERRL, bilateral eye EOMI Ear, Nose, Throat normal ENT inspection Neck limited range of motion, tender lateral Respiratory Status No: respiratory distress. Lung Sounds bilateral: lungs clear. 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 No Results/Orders Orders Procedure Date/time Status DIET-NOTHING BY MOUTH 08/[address] HEAD REQ 08/[address] SCAN REQUEST 08/22 1231 Complete XRAY/CT/US XRAY/CT/US CT head, C-spine CT interpretation by discussed w/radiologist Time results known: 1504 CT Results no fracture seen Departure Departure Time of Disposition 1501 Disposition DC Home or Self Care(routine) Clinical Impression Primary Impression: Cervical strain, acute Qualifiers: Encounter type: initial encounter Qualified Code: S16.1XXA - Strain of muscle, fascia and tendon at neck level, initial encounter Secondary Impressions: Head contusion Qualifiers: Encounter type: initial encounter Contusion of head detail: unspecified part of head Qualified Code: S00.93XA - Contusion of unspecified part of head, initial encounter Condition STABLE Referrals Catracho London MD (Family) Patient Instructions DI for Cervical Muscle Strain Additional Instructions ice and see pcp and use meds Discharge Counseling Counseled pt/family regarding diagnosis, test results, follow up needs Prescriptions Current Visit Scripts Cyclobenzaprine Hcl (Flexeril) 10 MG PO TID #15 TAB Prednisone (Prednisone 20MG) 20 MG PO BID #10 TAB ED Critical Care Critical Care No at 9724
[2017-08-22] MEDS ORDERED: FLEXERIL10 MG PO (15:14)
[2017-08-22] MEDS ORDERED: PREDNISONE 20MG20 MG PO (15:14)
[2017-08-22 15:17] VITALS: BP 135/80
[2017-09-03] MEDS ORDERED: ZOFRAN ODT4 MG PO (20:09)
== END 2017-08-22 15:18 | disposition home or self-care (01) ==
LOC: ER 11:42
DX: S16.1XXA Strain of muscle, fascia and tendon at neck level, initial encounter (principal); S00.93XA Contusion of unspecified part of head, initial encounter; F41.8 Other specified anxiety disorders; Z88.8 Allergy status to other drugs, medicaments and biological substances; V00.128A Other non-in-line roller-skating accident, initial encounter; Y93.51 Activity, roller skating (inline) and skateboarding